=== PATIENT | female | born 1960 | race Caucasian/White ===

== ENCOUNTER → 2020-03-16 11:46 | Outpatient (CLI) | payer OTHER, SELFPAY | PROVIDERS: PCP Nurse Practitioner Family; Referring Provider Nurse Practitioner Family; Visit Provider Nurse Practitioner Family | DX: Z11.59 Encounter for screening for other viral diseases (principal); R05 Cough; R50.9 Fever, unspecified; R43.2 Parageusia; R19.7 Diarrhea, unspecified | CPT/HCPCS: 87635; 87804; 94799; G2023; U0004 ==

== ENCOUNTER 2021-07-25 03:47 | Inpatient (IN) | payer BC, SELFPAY ==
[2021-07-25] VITALS (9 sets, daily range): BP systolic 111–155; BP diastolic 60–82; PULSE 62–90; RESP 13–18; TEMP 36.6–37.2; O2SAT 98–100; BMI 25.4; BMI 25.2
--- NOTE | 2021-07-25 04:08 | EKG12_ITS ---
Test Reason : SYNCOPE Blood Pressure : / mmHG Vent. Rate : 066 BPM Atrial Rate : 066 BPM P-R Int : 148 ms QRS Dur : 088 ms QT Int : 398 ms P-R-T Axes : 066 042 035 degrees QTc Int : 417 ms Normal sinus rhythm Normal ECG Confirmed by VALENTINA GIRON, MAGNOLIA ([id number]), graphics editor ALIZE JO ([id number]) on 07/26/2021 9:16:35 AM Referred By: MR Confirmed By:MAGNOLIA MONTGOMERY MD
[2021-07-25 04:23] LABS: Absolute Lymphocyte Count 2.87 X10^3/uL (0.83-4.51); Absolute Neutrophil Count 3.4 X10^3/uL (2.0-7.7); Basophil# 0.07 X10^3/uL; Eosinophil# 0.12 X10^3/uL; Eosinophils% 1.7 % (0-5); Hematocrit 37.4 % (37-47); Hemoglobin 12.2 g/dL (12.0-15.0); Lymphocyte # 2.87 X10^3/ul (0.83-4.51); Lymphocyte % 41.1 % (19-41); Mean Corp Hgb Conc 32.6 g/dL (32-36); Mean Corpuscular Hgb 32.4 pg (27.0-32.0); Mean Corpuscular Volume 99.2 fL (81-99); Mean Platelet Vol. 9.2 fl (6.2-12.0); Monocyte% 7.2 % (0-10); NRBC Flagged by Analyzer 0 % (0-5); Neutrophil # 3.41 X10^3/uL (2.7-7.7); Neutrophil % 48.7 % (47-70); Platelet Count 318 K/mm3 (150-450); RBC Distribution Width CV 12.8 % (11.6-14.6); RBC Distribution Width SD 46.6 fl (35.1-43.9); Red Blood Count 3.77 M/mm3 (4.2-5.4)
--- NOTE | 2021-07-25 04:44 | EX.ED.DYSGE1 ---
HPI History of Present Illness Chief Complaint: Syncope Narrative Narrative: Patient presenting secondary to feelings of lightheadedness as well as complications of chronic alcoholism. Patient states that she feels that she is an alcoholic. Patient reports that she will have periods of sobriety during the week as she works 2 full-time jobs, but every night when she comes home she will have at least 4 shots and on the weekends she states that she will get significantly intoxicated. This is been ongoing for quite some time. Patient states that her last drink was about 12 hours ago, but she does feel that she would like help with her alcoholism. Patient denies being suicidal or homicidal. She is not hallucinating. Additionally the patient is presenting secondary to concerns for feeling lightheaded. She states that all weekend she has been having feelings of lightheadedness as well as feelings of nausea. Patient states that it is worse with change in position. Is not associated with any sort of chest pain or palpitations. Patient has had some minimal vomiting. She does report that she has chronic diarrhea that is basically unchanged. She has an underlying history of hypertension. Review of systems otherwise negative. [facility] Medical History Depression Hyperlipemia Hypertension Home Medications atenolol 25 mg PO BID 07/25/21 [History Last Taken Unknown] lisinopril 2.5 mg PO DAILY 07/25/21 [History Last Taken Unknown] sertraline 50 mg PO DAILY 07/25/21 [History Last Taken Unknown] Allergy/AdvReac Type Severity Reaction Status Date / Time aspirin AdvReac Other Verified 07/25/21 03:51 Dvofzll-Jjf-Zpd Reductase AdvReac Other Verified 07/25/21 03:52 Inhibitor Social History Smoking Status: Former smoker ROS ROS ED Constitutional Constitutional ED: Denies chills or fever(s) ENT ENT ED: Denies rhinorrhea Cardiovascular Cardiovascular: Reports other Details: Lightheadedness Respiratory/Chest Respiratory/Chest: Denies cough or dyspnea Gastrointestinal Gastrointestinal: Denies abdominal pain, diarrhea, nausea or vomiting Genitourinary Genitourinary ED: Denies dysuria or hematuria Musculoskeletal Musculoskeletal: Denies back pain Integumentary Denies rash Neurologic Neurologic: Denies paresthesias or weakness Psychiatric Psychiatric: Reports other Details: Alcoholism Endocrine Endocrinology: Denies fatigue Allergic/Immunologic Allergic/Immunologic ED: Denies urticaria EXAM Physical Exam Const Vital Signs: 07/25/21 03:48 07/25/21 03:53 07/25/21 05:08 Temperature 98.4 F Temperature Source Oral Pulse Rate 74 72 Respiratory Rate 13 14 Respiratory Effort Normal Respiratory Pattern Normal Blood Pressure 155/77 H 132/72 H Blood Pressure Mean 103 92 Pulse Ox 100 100 Oxygen Delivery Method Room Air Room Air Positive well nourished and well developed Constitutional Narrative: Thin female who is tearful but otherwise not in physiologic distress General Appearance ED: well developed and NAD HEENT Reports moist mucous membranes Negative for trauma or tenderness Eyes EOMs intact bilaterally Neck no lymphadenopathy, supple and no JVD Chest Wall inspection of chest normal Resp normal respiratory effort and clear to auscultation bilaterally Cardio regular rate, regular rhythm, no murmurs and peripheral pulses 2+ throughout GI normal to inspection, nondistended, normoactive bowel sounds, non-tender and no masses Palpation: soft Back/Spine normal to inspection Extremity normal to inspection General Extremety ED: Negative for tenderness Neuro oriented x3 and no sensory deficits noted Sensorium / Orientation: alert Motor Exam: strength 5/5 throughout Psych Mood & Affect: tearful Skin no rashes or lesions noted MDM MDM MDM Narrative Medical decision making narrative: Patient presented with multiple complaints including dizziness as well as chronic alcoholism requesting potential detox. EKG was obtained on the patient was found to be unremarkable. CBC found to be unremarkable. Chemistry shows no significant electrolyte derangements, normal liver panel with modestly elevated AST, normal TSH. Despite the fact that the patient states that she was 12 hours out from her last drink her alcohol was still 152. Toxicology screen was found to be negative. High-sensitivity troponin also found to be negative. From syncope or presyncope standpoint I do not believe that the patient requires admission, but she does still have alcohol in her system and I would have suspicion that the patient potentially always has alcohol in her system even though she works given the aggressiveness with which she drinks. I do believe that she would potentially benefit from going through the detox program. I will discussed this with hospitalist. Lab Data Labs: Laboratory Results - last 24 hr 07/25/21 07/25/21 07/25/21 04:17 04:17 04:17 WBC 7.0 RBC 3.77 L Hgb 12.2 Hct 37.4 MCV 99.2 H MCH 32.4 H MCHC 32.6 RDW Std Deviation 46.6 H RDW Coeff of Johnathan 12.8 Plt Count 318 MPV 9.2 Immature Gran % (Auto) 0.300 Neut % (Auto) 48.7 Lymph % (Auto) 41.1 H Fajardo % (Auto) 7.2 Eos % (Auto) 1.7 Baso % (Auto) 1.0 Absolute Neuts (auto) 3.4 Absolute Lymphs (auto) 2.87 Nucleated RBC % 0 Sodium 138 Potassium 4.2 Chloride 103 Carbon Dioxide 26.0 Anion Gap 9 BUN 27 H Creatinine 1.06 H Estim Creat Clear Calc 44.08 Est GFR (MDRD) Af Amer 68 Est GFR (MDRD) Non-Af 56 L BUN/Creatinine Ratio 25.5 H Glucose 92 Calcium 8.7 Total Bilirubin 0.40 AST 61 H ALT 48 Alkaline Phosphatase 88 Troponin I High Sens 4 Total Protein 7.1 Albumin 3.4 Globulin 3.7 Albumin/Globulin Ratio 0.9 TSH 2.40 Urine Opiates Screen Urine Methadone Screen Ur Barbiturates Screen Ur Phencyclidine Scrn Ur Amphetamines Screen U Methamphetamin-MDMA U Benzodiazepines Scrn Urine Cocaine Screen U Cannabinoids Screen Ur Drug Screen Comment Ethyl Alcohol 152.0 07/25/21 04:35 WBC RBC Hgb Hct MCV MCH MCHC RDW Std Deviation RDW Coeff of Johnathan Plt Count MPV Immature Gran % (Auto) Neut % (Auto) Lymph % (Auto) Fajardo % (Auto) Eos % (Auto) Baso % (Auto) Absolute Neuts (auto) Absolute Lymphs (auto) Nucleated RBC % Sodium Potassium Chloride Carbon Dioxide Anion Gap BUN Creatinine Estim Creat Clear Calc Est GFR (MDRD) Af Amer Est GFR (MDRD) Non-Af BUN/Creatinine Ratio Glucose Calcium Total Bilirubin AST ALT Alkaline Phosphatase Troponin I High Sens Total Protein Albumin Globulin Albumin/Globulin Ratio TSH Urine Opiates Screen NEGATIVE Urine Methadone Screen NEGATIVE Ur Barbiturates Screen NEGATIVE Ur Phencyclidine Scrn NEGATIVE Ur Amphetamines Screen NEGATIVE U Methamphetamin-MDMA NEGATIVE U Benzodiazepines Scrn NEGATIVE Urine Cocaine Screen NEGATIVE U Cannabinoids Screen NEGATIVE Ur Drug Screen Comment Ethyl Alcohol EKG Initial EKG: Attestation: I personally reviewed and interpreted this EKG as follows: (Sinus rhythm [address] segments normal T waves normal GA and QTC intervals no evidence of acute ischemia or arrhythmia) Discharge Plan Dx/Rx/DC Orders Clinical Impression: Alcoholism, Alcohol withdrawal Disposition Disposition: Acute Care Hospital [facility]
[2021-07-25 04:48] LABS: ALB/GLOB Ratio 0.9 RATIO (0.9-2.4); AST(SGOT) 61 U/L (15-37); Alanine Aminotransfer ALT/SGPT 48 U/L (13-56); Albumin, Serum 3.4 g/dL (3.2-5.0); Alkaline Phosphatase 88 U/L (45-117); Anion Gap 9 (5-15); BUN 27 mg/dL (7-18); BUN/Creat Ratio 25.5 RATIO (10-20); Calcium,Total 8.7 mg/dL (8.5-10.1); Chloride 103 mmol/L (98-107); Creatinine, Serum 1.06 mg/dL (0.55-1.02); EST Glomerular Filtration Rate 56 mL/min (>60); Est Glom Filt Rate - Afr Amer 68 mL/min (>60); Estimated Creatinine Clearance 44.08 ml/min; Globulin 3.7 g/dL (2.2-4.2); Glucose 92 mg/dL (74-106); Potassium 4.2 mmol/L (3.5-5.1); Protein, Total 7.1 g/dL (6.4-8.2); Sodium Level 138 mmol/L (136-145); Troponin-I HS 4 pg/mL (3.0-54.0)
[2021-07-25 04:56] LABS: Amphetamine Urine VISTA NEGATIVE (<1000 ng/mL); Barbiturate Urine VISTA NEGATIVE (< 200 ng/mL); Benzodiazepine Urine VISTA NEGATIVE (< 200 ng/mL); Cocaine Urine VISTA NEGATIVE (< 300 ng/mL); Ecstacy Urine VISTA NEGATIVE (< 500 ng/mL); Methadone Urine VISTA NEGATIVE (< 300 ng/mL); PCP Urine VISTA NEGATIVE (< 25 ng/mL); THC Urine VISTA NEGATIVE (< 50 ng/mL); Vista UDS pH Range 4
--- NOTE | 2021-07-25 05:23 | HP.PCM_ITS ---
HPI - General HPI Narrative TJ TOM, is a 60 F who presents to the emergency room requesting alcohol detoxification. Patient has had heavy drinking history for the past 4 years and moderate drinking prior to that. She drinks half 1/5 of whiskey every day when she comes home from work. 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 She states her drinks moderately but is able to go several days without having an alcoholic beverage. Apparently he lost his first to alcoholism. The patient presented with some lightheadedness and dizziness and soon admitted that that was secondary to her alcohol withdrawal. Patient states she has not had a drink in 12 hours however that is inconsistent with the laboratory findings of an alcohol level of 152. Patient denies any chest pain shortness of breath fevers or chills nausea vomiting or diarrhea. Patient will be admitted to the rehab program for alcohol withdrawal. [facility] Medical History Depression Hyperlipemia Hypertension Home Medications atenolol 25 mg PO BID 07/25/21 [History Last Taken Unknown] lisinopril 2.5 mg PO DAILY 07/25/21 [History Last Taken Unknown] sertraline 50 mg PO DAILY 07/25/21 [History Last Taken Unknown] Allergy/AdvReac Type Severity Reaction Status Date / Time aspirin AdvReac Other Verified 07/25/21 03:51 Gaqvjwi-Mbs-Rwg Reductase AdvReac Other Verified 07/25/21 03:52 Inhibitor Social History Smoking Status: Former smoker ROS Constitutional Constitutional: Denies chills or fever(s) Eyes Eyes: Denies blurry vision ENT HEENT: Denies abnormal hearing Cardiovascular Cardiovascular: Denies chest pain Respiratory/Chest Respiratory/Chest: Denies shortness of breath at rest Gastrointestinal Gastrointestinal: Denies abdominal pain Genitourinary Genitourinary: Denies dysuria Musculoskeletal Musculoskeletal: Denies back pain Neurologic Neurologic: Reports dizziness Psychiatric Psychiatric: Reports anxiety Vital Signs Vital Signs Vital Signs: 07/25/21 03:48 07/25/21 03:53 07/25/21 05:08 Temperature 98.4 F Temperature Source Oral Pulse Rate 74 72 Respiratory Rate 13 14 Respiratory Effort Normal Respiratory Pattern Normal Blood Pressure 155/77 H 132/72 H Blood Pressure Mean 103 92 Pulse Ox 100 100 Oxygen Delivery Method Room Air Room Air Weight Weight: 139 lb 1.787 oz Body Mass Index (BMI) 25.4 Physical Exam Const oriented x3 HEENT head/scalp atraumatic Eyes PERRL Neck supple Lymph Lymphatic: no lymphadenopathy noted Resp normal respiratory effort, normal air movement and clear to auscultation bilaterally Cardio regular rate, regular rhythm, S1 normal heart sound and S2 normal heart sound GI normal to inspection, nondistended, normoactive bowel sounds Extremity no clubbing, cyanosis or edema Skin General Skin Exam: turgor normal Neuro CN's II-XII intact bilaterally Psych affect normal Results Lab / Micro Data Result Diagrams: 07/25/21 04:17 07/25/21 04:17 Labs: Laboratory Results - last 24 hr 07/25/21 04:17: WBC 7.0, RBC 3.77 L, Hgb 12.2, Hct 37.4, MCV 99.2 H, MCH 32.4 H, MCHC 32.6, RDW Std Deviation 46.6 H, RDW Coeff of Johnathan 12.8, Plt Count 318, MPV 9.2, Immature Gran % (Auto) 0.300, Neut % (Auto) 48.7, Lymph % (Auto) 41.1 H, Bland % (Auto) 7.2, Eos % (Auto) 1.7, Baso % (Auto) 1.0, Absolute Neuts (auto) 3.4, Absolute Lymphs (auto) 2.87, Nucleated RBC % 0 07/25/21 04:17: Sodium 138, Potassium 4.2, Chloride 103, Carbon Dioxide 26.0, Anion Gap 9, BUN 27 H, Creatinine 1.06 H, Estim Creat Clear Calc 44.08, Est GFR (MDRD) Af Amer 68, Est GFR (MDRD) Non-Af 56 L, BUN/Creatinine Ratio 25.5 H, Glucose 92, Calcium 8.7, Total Bilirubin 0.40, AST 61 H, ALT 48, Alkaline Phosphatase 88, Troponin I High Sens 4, Total Protein 7.1, Albumin 3.4, Globulin 3.7, Albumin/Globulin Ratio 0.9, TSH 2.40 07/25/21 04:17: Ethyl Alcohol 152.0 07/25/21 04:35: Urine Opiates Screen NEGATIVE, Urine Methadone Screen NEGATIVE, Ur Barbiturates Screen NEGATIVE, Ur Phencyclidine Scrn NEGATIVE, Ur Amphetamines Screen NEGATIVE, U Methamphetamin-MDMA NEGATIVE, U Benzodiazepines Scrn NEGATIVE, Urine Cocaine Screen NEGATIVE, U Cannabinoids Screen NEGATIVE, Ur Drug Screen Comment Assessment & Plan Assessment/Plan (1) Alcohol withdrawal: PLAN: Plan 1. Alcohol withdrawal?admit patient to our RAMP program, start thiamine folic acid, counseling consult for outpatient follow-up care, will follow [place] protocol 2. DVT prophylaxis?patient is ambulatory from bed to bathroom at this point medications not needed Charges/Coding Visit Charges Inpatient E&M: 97906 Init Hosp L2
--- NOTE | 2021-07-25 07:08 | PCM.HOSP.N ---
Hospitalist Note The patient was admitted on the morning today. H&P reviewed. Patient is started on phenobarbital based other adjunctive medications for medical stabilization of acute alcohol withdrawal syndrome. BUN is elevated suggestive of intravascular volume contraction. On IV fluid Ringer lactate. Patient has been drinking 1/5 of whiskey every day, about 5 shots of vodka during weekdays and more on weekends Patient denies history of GI bleed including hematemesis or melena, ascites Exam mild tremors Management On phenobarbital. Ativan discontinued. Discussed with the pharmacist.
[2021-07-25] MEDS: Phenobarbital 32.4 MG Tablet 64.8 MG PO ×5 (08:32→23:31)
[2021-07-25] MEDS: Folic Acid 1 MG Tablet PO (08:33)
[2021-07-25] MEDS: Thiamine Hydrochloride 100 MG Tablet PO (08:33)
[2021-07-25] MEDS: Atenolol 25 MG Tablet PO ×2 (08:33→21:01)
[2021-07-25] MEDS: Lisinopril 2.5 MG Tablet PO (08:34)
[2021-07-25] MEDS: Enoxaparin 40 MG/0.4 ML Syringe SC (08:35)
[2021-07-25] MEDS: 0.9% Saline Lock 10 ML Syringe IV ×2 (08:50→19:00)
[2021-07-25] MEDS: Lactated Ringers 1,000 ML 125 ML IV (08:50)
[2021-07-25] MEDS: Ondansetron 8 MG Tablet PO (08:55)
--- NOTE | 2021-07-25 12:08 | ADDICTION ---
TW met with pt to complete ASAM, AUDIT,DUDIT, MSE, and plan for d/c. Pt reported high stressors at home and difficulty managing all of them. TW provided supportive counseling to manage stressors. PT reported that she has an EAP at work but her place of employment was recently bought out and now she's unsure who the covered providers are. Pt reported that she wants to seek counseling through her EAP when she is released, and she has done this multiple times in the past. TW stated she would still provide her resources in the [facility] area, as pt is located in [place]. Pt stated she does not need transportation on d/c.
[2021-07-25] MEDS: Loperamide 2 MG Capsule PO (17:06)
[2021-07-25] MEDS: Sertraline 50 MG Tablet PO (21:01)
[2021-07-25] MEDS: traZODone 100 MG Tablet PO (23:31)
--- NOTE | 2021-07-25 23:32 | PCS.PANDOC ---
PANDEMIC DOCUMENTATION INITIATED: Date: 07/03/2021 Time: 190
[2021-07-26] VITALS (8 sets, daily range): BP systolic 106–148; BP diastolic 55–76; PULSE 68–81; RESP 16–24; TEMP 36.7–36.9; O2SAT 97–98
[2021-07-26] MEDS: Phenobarbital 32.4 MG Tablet 64.8 MG PO ×6 (03:01→23:31)
[2021-07-26] MEDS: Folic Acid 1 MG Tablet PO (06:33)
[2021-07-26] MEDS: Thiamine Hydrochloride 100 MG Tablet PO (06:33)
[2021-07-26] MEDS: 0.9% Saline Lock 10 ML Syringe IV ×3 (06:33→21:56)
--- NOTE | 2021-07-26 09:36 | ADDICTION ---
TW met with PT to provide resources in [facility]. TW left paperwork on [facility], a mental health and substance use facility in [place] due to PT being from [place]. Pt stated I don't know what they gave me last night but I can't stay awake and then immediately fell back asleep. TW stated she would leave resources on the table and be back to see her the following day.
[2021-07-26] MEDS: Lisinopril 2.5 MG Tablet PO ×2 (11:27→21:49)
[2021-07-26] MEDS: Atenolol 25 MG Tablet PO ×2 (11:28→21:49)
[2021-07-26] MEDS: Enoxaparin 40 MG/0.4 ML Syringe SC (11:28)
--- NOTE | 2021-07-26 15:40 | PCM.PN.HOSP ---
Subjective Subjective Seen and examined. Patient denies any hallucination, delusion or delusion. No seizure. Objective Data Objective Data Vital Signs: Vital Signs Temp Pulse Resp BP Pulse Ox 98.3 F 75 18 148/76 H 98 07/26/21 11:32 07/26/21 11:32 07/26/21 11:32 07/26/21 11:32 07/26/21 11:32 Oxygen Delivery Method Room Air Weight: 137 lb 12.623 oz Body Mass Index (BMI) 25.2 Intake & Output: Intake and Output for Last 24 Hours 07/24/21 07/25/21 07/26/21 23:59 23:59 23:59 Intake Total 1650 / 1650 490 / 490 Balance 1650 / 1650 490 / 490 Lab / Micro Data Result Diagrams: 07/25/21 04:17 07/25/21 04:17 Micro: Microbiology 07/25/21 05:25 Nasal Secretion SARS-CoV-2 Antigen (Rapid) - Final Physical Exam Narrative General: Mild drowsy, oriented x3, Cooperative HEENT: Atraumatic, PERRLA, EOMI, Normocephalic Oral: No Gingival or Mucosal Lesions/ Ulcerations Neck: Supple, No JVD, Negative Carotid Bruits Lungs: Air entry diminished in bilateral lung bases. No crepitation/rhonchi Cardiovascular: Regular rate, Regular Rhythm, Normal S1, Normal S2, No murmurs Abdomen: Bowel Sounds Present, Soft, Non Tender, Non-Distended : No renal angle tenderness. No suprapubic tenderness. Extremities: No edema, Capillary Refill Less than 3 Seconds Skin: No rashes, No breakdown Musculoskeletal: Mild tremors of both hands. No Tenderness to Palpation of Joints or Extremities Neurological: Cranial nerves II-XII grossly intact, DTR 2+/4 and Symmetrical, Neuro grossly intact Psych/Mental Status: Flat affect. Assessment & Plan Assessment/Plan (1) Alcohol withdrawal: PLAN: 1. Acute alcohol withdrawal syndrome with chronic alcohol use with mild chronic alcoholic hepatitis: Patient is on phenobarbital along with other adjunctive medications to control withdrawal symptoms. Patient also on sertraline. Symptoms are well controlled. Seen by 180 and plan for outpatient rehab. Supplement thiamine and folic acid. AST 61. Total bilirubin normal. 2. Cigarette smoking: On nicotine patch. VTE prophylaxis: Enoxaparin 40 mg daily. Discontinue if platelet count drops less than 50,000 or hemoglobin less than 8 g% Charges/Coding Visit Charges Inpatient E&M: 93827 Subs Hosp L2
[2021-07-26] MEDS: hydrOXYzine PAM 25 MG Capsule 50 MG PO (16:55)
[2021-07-26] MEDS: Sertraline 50 MG Tablet PO (21:49)
[2021-07-27 02:46] VITALS: BP 110/71; PULSE 76; RESP 16; TEMP 36.5; O2SAT 95
[2021-07-27 02:50] VITALS: BP 110/71; PULSE 76; RESP 16; TEMP 36.5; O2SAT 95
[2021-07-27] MEDS: Phenobarbital 32.4 MG Tablet 64.8 MG PO ×2 (02:54→07:17)
--- NOTE | 2021-07-27 09:49 | PCM.DC ---
Discharge Instructions Diet Discharge Diet: No restrictions Activity Discharge Activity: Return to Normal Activity and May Not Drive Weight Bearing Status: Weight bearing as tolerated Dressing / Incision Call your doctor if you observe: Fever of 101 or Higher, Coldness, Increased Pain, Numbness or Tingling, Change in Color, Inability to urinate, Inability to have a bowel movement, Using more than 1 pad per hour, Shortness of breath, Dizziness, Swelling in the ankles, Chest pain, Prolonged hiccupping, Increased palpitations (irregular heartbeat), Calf discomfort and Uncontrolled pain Follow Up Care Test Results: Test results from this visit will be discussed in further detail at your follow-up appointment, if applicable. Discharge Plan Admission Admit Date/Time: 07/25/21 05:33 Primary Reason for Your Visit: Acute alcohol withdrawal syndrome Attending Provider: Rito Camacho Instructions Patient Instructions: Alcohol Withdrawal: What to Expect Additional Instructions / Restrictions: Follow-up outpatient alcohol rehab program as set up by [facility]. Discharge Orders/Prescriptions Prescriptions: New thiamine HCl (vitamin B1) [Vitamin B-1] 100 mg Tablet 100 mg PO DAILYCM Qty: 30 RF: 0 folic acid 1 mg Tablet 1 mg PO DAILY@0800 Qty: 30 RF: 0 Continued atenolol 25 mg tablet 25 mg PO BID RF: 0 sertraline 50 mg tablet 50 mg PO QHS RF: 0 lisinopril 2.5 mg tablet 2.5 mg PO BID RF: 0 Referrals / Follow Up: TJ BRONSON [Other] TJ BRONSON [Other] Emmanuel Jiménez MD [STAFF PHYSICIAN] - Within 2 Weeks Disposition Disposition (needs filled in before D/C Order can be placed): Home, Self Care
--- NOTE | 2021-07-27 09:53 | PCM.DC.SUM ---
Providers Date of Admission: 07/25/21 Primary Care Physician: TJ BRONSON Reason For Visit: ALCOHOL WITHDRAWL Diagnosis Discharge Diagnosis (1) Alcohol withdrawal: Status: Acute Code(s): F10.239 - Alcohol dependence with withdrawal, unspecified Medications at Discharge Home Medications atenolol 25 mg PO BID 07/25/21 lisinopril 2.5 mg PO BID 07/25/21 sertraline 50 mg PO QHS 07/25/21 folic acid 1 mg PO DAILY@0800 #30 tab 07/27/21 thiamine HCl (vitamin B1) [Vitamin B-1] 100 mg PO DAILYCM #30 tab 07/27/21 Hospital Course Summary of Care Provided Hospital Course: This is a patient which is admitted for acute alcohol withdrawal syndrome. Patient drinks 1/5 of whiskey on weekdays and more on weekends. She was admitted with tremors, lightheadedness and dizziness. 1. Acute alcohol withdrawal syndrome with chronic alcohol use with mild chronic alcoholic hepatitis: Patient was on phenobarbital along with other adjunctive medications to control withdrawal symptoms. Patient also on sertraline. Symptoms are well controlled. Seen by 180 and plan for outpatient rehab. Supplement thiamine and folic acid. AST 61. Total bilirubin normal. 2. Cigarette smoking: On nicotine patch. VTE prophylaxis: Enoxaparin 40 mg daily. Discontinue if platelet count drops less than 50,000 or hemoglobin less than 8 g% Discharge medication reconciliation done. Discharge follow-up instructions completed. Discharge process discussed with the patient and all questions were answered to patient's satisfaction. Total time spent, exact 35 minutes on discharge meds reconciliation, examination, coordination of care with nurses and ancillary staff, review of imaging and blood test and discussion with the patient on follow-up instructions Physical Exam Narrative General: Awake, oriented x3, Cooperative HEENT: Atraumatic, PERRLA, EOMI, Normocephalic Oral: No Gingival or Mucosal Lesions/ Ulcerations Neck: Supple, No JVD, Negative Carotid Bruits Lungs: Air entry diminished in bilateral lung bases. No crepitation/rhonchi Cardiovascular: Regular rate, Regular Rhythm, Normal S1, Normal S2, No murmurs Abdomen: Bowel Sounds Present, Soft, Non Tender, Non-Distended : No renal angle tenderness. No suprapubic tenderness. Extremities: No edema, Capillary Refill Less than 3 Seconds Skin: No rashes, No breakdown Musculoskeletal: Mild tremors of both hands. No Tenderness to Palpation of Joints or Extremities Neurological: Cranial nerves II-XII grossly intact, DTR 2+/4 and Symmetrical, Neuro grossly intact Psych/Mental Status: Flat affect. Weight / BMI Weight Weight: 137 lb 12.623 oz Body Mass Index (BMI) 25.2 ABG / Lab / Microbiology Data Result Diagrams: 07/25/21 04:17 07/25/21 04:17 Microbiology: Microbiology 07/25/21 05:25 Nasal Secretion SARS-CoV-2 Antigen (Rapid) - Final D/C Instructions Discharge Diet: No restrictions Weight Bearing Status: Weight bearing as tolerated Call your doctor if you observe: Fever of 101 or Higher, Coldness, Increased Pain, Numbness or Tingling, Change in Color, Inability to urinate, Inability to have a bowel movement, Using more than 1 pad per hour, Shortness of breath, Dizziness, Swelling in the ankles, Chest pain, Prolonged hiccupping, Increased palpitations (irregular heartbeat), Calf discomfort and Uncontrolled pain Meaningful Use Info Meaningful Use Diagnoses (Choose all that apply): None applicable Discharge Plan Admission Admit Date/Time: 07/25/21 05:33 Primary Reason for Your Visit: Acute alcohol withdrawal syndrome Attending Provider: Rito Camacho Instructions Forms: Work / School Excuse Patient Instructions: Alcohol Withdrawal: What to Expect Additional Instructions / Restrictions: Follow-up outpatient alcohol rehab program as set up by 180. Discharge Orders/Prescriptions Prescriptions: New thiamine HCl (vitamin B1) [Vitamin B-1] 100 mg Tablet 100 mg PO DAILYCM Qty: 30 RF: 0 folic acid 1 mg Tablet 1 mg PO DAILY@0800 Qty: 30 RF: 0 Continued atenolol 25 mg tablet 25 mg PO BID RF: 0 sertraline 50 mg tablet 50 mg PO QHS RF: 0 lisinopril 2.5 mg tablet 2.5 mg PO BID RF: 0 Referrals / Follow Up: TJ BRONSON [Other] TJ BRONSON [Other] Emmanuel Jiménez MD [STAFF PHYSICIAN] - Within 2 Weeks Disposition Disposition (needs filled in before D/C Order can be placed): Home, Self Care Charges/Coding Visit Charges Inpatient E&M: 58127 Disch Hosp
--- NOTE | 2021-07-27 10:12 | ADDICTION ---
TW went to see PT to discuss discharge and see if there was anything further PT needed. TW offered supportive counseling and encouragement. PT stated she would f/u with her work EAP and make an appointment by tomorrow 07/27/21.
[2021-07-27] MEDS: Lisinopril 2.5 MG Tablet PO (11:11)
[2021-07-27] MEDS: Atenolol 25 MG Tablet PO (11:12)
[2021-07-27] MEDS: Folic Acid 1 MG Tablet PO (11:12)
[2021-07-27] MEDS: Thiamine Hydrochloride 100 MG Tablet PO (11:12)
[2021-07-27 11:15] VITALS: BP 116/61; PULSE 75; RESP 16; TEMP 36.4; O2SAT 98
== END 2021-07-27 12:44 | disposition home or self-care (01) | DRG 897 ==
LOC: ED 05:10 → MS3 05:34
PROVIDERS: Admitting Provider Family Medicine; Emergency Provider Emergency Medicine; Visit Provider Internal Medicine
DX: F10.239 Alcohol dependence with withdrawal, unspecified (principal); Y90.6 Blood alcohol level of 120-199 mg/100 ml; K70.10 Alcoholic hepatitis without ascites; Z20.822 Contact with and (suspected) exposure to COVID-19; R55 Syncope and collapse; I10 Essential (primary) hypertension; E78.5 Hyperlipidemia, unspecified; F32.9 Major depressive disorder, single episode, unspecified; F17.210 Nicotine dependence, cigarettes, uncomplicated; Z79.899 Other long term (current) drug therapy
CPT/HCPCS: 80053; 80307; 82077; 84443; 84484; 85025; 87426; 93005; 97802; 99284; J7120; A4216

== ENCOUNTER 2022-02-20 13:36 | Inpatient (IN) | payer BC, SELFPAY ==
[2022-02-20 13:38] VITALS: BP 154/87; PULSE 73; RESP 14; TEMP 36.2; O2SAT 98; BMI 27.1
--- NOTE | 2022-02-20 14:28 | EKG12_ITS ---
Test Reason : ALCOHOL DETOX Blood Pressure : / mmHG Vent. Rate : 066 BPM Atrial Rate : 066 BPM P-R Int : 142 ms QRS Dur : 084 ms QT Int : 404 ms P-R-T Axes : 037 038 025 degrees QTc Int : 423 ms Normal sinus rhythm Normal ECG Confirmed by NEGRITO PIERCE MD ([id number]), editor farm journal WERNER VENEGAS ([id number]) on 02/21/2022 2:09:37 PM Referred By: RUBEN Confirmed By:NEGRITO PIERCE MD
[2022-02-20 14:33] LABS: Absolute Neutrophil Count 2.9 X10^3/uL (2.0-7.7); Basophil# 0.03 X10^3/uL; Basophil% 0.6 % (0-1); Eosinophil# 0.08 X10^3/uL; Eosinophils% 1.6 % (0-5); Hematocrit 34.2 % (37-47); Hemoglobin 11.5 g/dL (12.0-15.0); Lymphocyte % 28.9 % (19-41); Mean Corp Hgb Conc 33.6 g/dL (32-36); Mean Corpuscular Hgb 33.2 pg (27.0-32.0); Mean Corpuscular Volume 98.8 fL (81-99); Mean Platelet Vol. 9.4 fl (6.2-12.0); Monocyte# 0.43 X10^3/uL; Monocyte% 8.9 % (0-10); NRBC Flagged by Analyzer 0 % (0-5); Neutrophil % 59.8 % (47-70); Platelet Count 251 K/mm3 (150-450); RBC Distribution Width CV 12.4 % (11.6-14.6); RBC Distribution Width SD 44.7 fl (35.1-43.9); Red Blood Count 3.46 M/mm3 (4.2-5.4); White Blood Count 4.9 K/mm3 (4.4-11.0)
--- NOTE | 2022-02-20 14:35 | EDS_ITS ---
HPI History of Present Illness Chief Complaint: Substance Abuse Informant: patient Narrative Narrative: Patient is a 61-year-old female history of hypertension, depression hyperlipidemia as well as family history of coronary artery disease presenting with request for alcohol detox. Patient states she drinks half pint of whiskey a day and more on the weekends. She was an inpatient detox here in 07/2022 but states that after couple when she started drinking again. She contributes this to not setting up outpatient counseling or going to . Her last drink was at noon today. She has a history of tobacco use but quit 2 to 3 years ago. Denies any drug use. Notes that she is been more fatigued lately and has had night sweats for the past 6 months to a year. Has had some mild weight gain. Denies any swelling of her legs. States she does work 2 jobs and then takes care of her grandchildren so she does have a high level of stress. She notes that about 4 days ago she had episode of chest discomfort and tightness radiating down to her left arm and into her neck. She never had that before. It lasted for couple hours and self resolved. She denies any orthopnea or dyspnea on exertion. No other complaints at this time. [facility] Medical History (Updated 02/20/22 @ 15:[address] Keena Hills, DO) Alcoholism Cholecystectomy planned Colitis Depression Hyperlipemia Hypertension Home Medications atenolol 25 mg PO BID 07/25/21 [History Last Taken Unknown] lisinopril 2.5 mg PO BID 07/25/21 [History Last Taken Unknown] sertraline 50 mg PO QHS 07/25/21 [History Last Taken Unknown] folic acid 1 mg PO DAILY@0800 #30 tab 07/27/21 [Rx Last Taken Unknown] cetirizine 10 mg PO DAILY 02/20/22 [History Last Taken Unknown] cimetidine 200 mg PO DAILY 02/20/22 [History Last Taken Unknown] vitamin B complex [Vitamins B Complex] 1 tab PO DAILY 02/20/22 [History Last Taken Unknown] Allergy/AdvReac Type Severity Reaction Status Date / Time aspirin AdvReac JITTERY Verified 02/20/22 15:35 Rgvfvjk-AHK-ZsD Reductase AdvReac FEELS LIKE Verified 02/20/22 15:35 Inhibitor LIPS ARE [Eqweafp-Exn-Kfr Reductase ON FIRE Inhibitor] Social History Smoking Status: Former smoker ROS ROS ED Constitutional Constitutional ED: Denies chills, fever(s) or weight loss Eyes Eyes: Denies change in vision ENT ENT ED: Denies ear pain Cardiovascular Cardiovascular: Reports chest pain Respiratory/Chest Respiratory/Chest: Denies cough or dyspnea Gastrointestinal Gastrointestinal: Denies abdominal pain, diarrhea, melena or vomiting Musculoskeletal Musculoskeletal: Denies arthralgias or myalgias Integumentary Denies rash Neurologic Neurologic: Denies headache(s) or weakness Psychiatric Psychiatric: Denies anxiety, depression or suicidal thoughts Hematologic/Lymphatic Hematologic/Lymphatic: Denies easy bleeding or easy bruising EXAM Physical Exam Const Vital Signs: 02/20/22 13:38 02/20/22 15:26 Temperature 97.2 F L Temperature Source Temporal Pulse Rate 73 65 Respiratory Rate 14 16 Blood Pressure 154/87 H 150/77 H Blood Pressure Mean 109 101 Pulse Ox 98 99 Oxygen Delivery Method Room Air Room Air Positive well nourished and well developed General Appearance ED: well developed HEENT Reports moist mucous membranes atraumatic Eyes PERRL and EOMs intact bilaterally Neck supple and no JVD Chest Wall inspection of chest normal Resp normal respiratory effort and clear to auscultation bilaterally Cardio regular rate, regular rhythm and no murmurs GI soft to palpation, non-tender, non-distended and no masses Back/Spine no CVA tenderness Extremity Extremity Narrative: 2+ DP pulses General Extremety ED: Negative for edema or tenderness General Extremity: Negative for edema Neuro oriented x3 and CN's II-XII intact bilaterally Neuro Narrative: no tremor Sensorium / Orientation: alert Motor Exam: Negative for general weakness Psych mental status grossly normal and thought process normal Skin General Skin Exam: Negative for jaundice Lesions: no lesions Rashes: no rashes MDM MDM MDM Narrative Medical decision making narrative: Patient evaluated for alcohol detox. Patient does not currently appear to be withdrawing. She is medically evaluated. Cardiac work-up is also obtained as patient had an episode of chest pain over the weekend. Her EKG is normal and her troponin is now normal. She does have a mildly elevated BNP which is indeterminate. Chest x-ray does not appear consistent with fluid overload. Chest x-ray interpreted by myself as well as radiology. Patient is admitted to hospital service. Lab Data Attestation: I reviewed the patient's lab results. Labs: Laboratory Results - last 24 hr 02/20/22 02/20/22 02/20/22 14:24 14:24 14:24 WBC 4.9 RBC 3.46 L Hgb 11.5 L Hct 34.2 L MCV 98.8 MCH 33.2 H MCHC 33.6 RDW Std Deviation 44.7 H RDW Coeff of Johnathan 12.4 Plt Count 251 MPV 9.4 Immature Gran % (Auto) 0.200 Neut % (Auto) 59.8 Lymph % (Auto) 28.9 Esmeralda % (Auto) 8.9 Eos % (Auto) 1.6 Baso % (Auto) 0.6 Absolute Neuts (auto) 2.9 Absolute Lymphs (auto) 1.40 Nucleated RBC % 0 PT 12.7 INR 1.0 Sodium 139 Potassium 4.0 Chloride 108 H Carbon Dioxide 23.0 Anion Gap 8 BUN 21 H Creatinine 1.34 H Estim Creat Clear Calc 34.43 Est GFR (MDRD) Af Amer 52 L Est GFR (MDRD) Non-Af 43 L BUN/Creatinine Ratio 15.7 Glucose 122 H Calcium 9.0 Total Bilirubin 0.30 AST 22 ALT 24 Alkaline Phosphatase 91 Troponin I High Sens B-Natriuretic Peptide Total Protein 6.7 Albumin 3.5 Globulin 3.2 Albumin/Globulin Ratio 1.1 Urine Color Urine Clarity Urine pH Ur Specific [place] Urine Protein Urine Glucose (UA) Urine Ketones Urine Occult Blood Urine Nitrite Urine Bilirubin Urine Urobilinogen Ur Leukocyte Esterase Urine RBC Urine WBC Ur Squamous Epith Cells Urine Bacteria Urine Mucus Urine Opiates Screen Urine Methadone Screen Ur Barbiturates Screen Ur Phencyclidine Scrn Ur Amphetamines Screen MDMA (Ecstasy) Screen U Benzodiazepines Scrn Urine Cocaine Screen U Cannabinoids Screen Ur Drug Screen Comment Ethyl Alcohol 02/20/22 02/20/22 02/20/22 14:24 14:24 14:24 WBC RBC Hgb Hct MCV MCH MCHC RDW Std Deviation RDW Coeff of Johnathan Plt Count MPV Immature Gran % (Auto) Neut % (Auto) Lymph % (Auto) Esmeralda % (Auto) Eos % (Auto) Baso % (Auto) Absolute Neuts (auto) Absolute Lymphs (auto) Nucleated RBC % PT INR Sodium Potassium Chloride Carbon Dioxide Anion Gap BUN Creatinine Estim Creat Clear Calc Est GFR (MDRD) Af Amer Est GFR (MDRD) Non-Af BUN/Creatinine Ratio Glucose Calcium Total Bilirubin AST ALT Alkaline Phosphatase Troponin I High Sens < 3 L B-Natriuretic Peptide 110.7 H Total Protein Albumin Globulin Albumin/Globulin Ratio Urine Color Urine Clarity Urine pH Ur Specific [place] Urine Protein Urine Glucose (UA) Urine Ketones Urine Occult Blood Urine Nitrite Urine Bilirubin Urine Urobilinogen Ur Leukocyte Esterase Urine RBC Urine WBC Ur Squamous Epith Cells Urine Bacteria Urine Mucus Urine Opiates Screen Urine Methadone Screen Ur Barbiturates Screen Ur Phencyclidine Scrn Ur Amphetamines Screen MDMA (Ecstasy) Screen U Benzodiazepines Scrn Urine Cocaine Screen U Cannabinoids Screen Ur Drug Screen Comment Ethyl Alcohol 20.0 02/20/22 02/20/22 14:45 14:45 WBC RBC Hgb Hct MCV MCH MCHC RDW Std Deviation RDW Coeff of Johnathan Plt Count MPV Immature Gran % (Auto) Neut % (Auto) Lymph % (Auto) Esmeralda % (Auto) Eos % (Auto) Baso % (Auto) Absolute Neuts (auto) Absolute Lymphs (auto) Nucleated RBC % PT INR Sodium Potassium Chloride Carbon Dioxide Anion Gap BUN Creatinine Estim Creat Clear Calc Est GFR (MDRD) Af Amer Est GFR (MDRD) Non-Af BUN/Creatinine Ratio Glucose Calcium Total Bilirubin AST ALT Alkaline Phosphatase Troponin I High Sens B-Natriuretic Peptide Total Protein Albumin Globulin Albumin/Globulin Ratio Urine Color Yellow Urine Clarity Clear Urine pH 5.0 Ur Specific [place] 1.020 Urine Protein Negative Urine Glucose (UA) Normal Urine Ketones Negative Urine Occult Blood Negative Urine Nitrite Negative Urine Bilirubin Negative Urine Urobilinogen Normal Ur Leukocyte Esterase Negative Urine RBC 0 SEEN Urine WBC 0 SEEN Ur Squamous Epith Cells 0 SEEN Urine Bacteria 0 SEEN Urine Mucus 0 SEEN Urine Opiates Screen NEGATIVE Urine Methadone Screen NEGATIVE Ur Barbiturates Screen NEGATIVE Ur Phencyclidine Scrn NEGATIVE Ur Amphetamines Screen NEGATIVE MDMA (Ecstasy) Screen NEGATIVE U Benzodiazepines Scrn NEGATIVE Urine Cocaine Screen NEGATIVE U Cannabinoids Screen NEGATIVE Ur Drug Screen Comment Ethyl Alcohol Radiography Chest X-Ray - ED: 1 View, Read by ED Physician, Read by Radiologist and No Acute Disease Rhythm Strip Rhythm Strip: Sinus Rhythm Rate: 66 Ectopy: None EKG Initial EKG: Attestation: I personally reviewed and interpreted this EKG as follows: Interpretation: Sinus Rhythm Comments: Normal sinus rhythm rate of 66 Normal axis Normal intervals Normal ST segments Discharge Plan Triage Chief Complaint: Substance Abuse ED Provider: Keena Hills Dx/Rx/DC Orders Clinical Impression: Alcohol dependence, Creatinine elevation Disposition Disposition: Acute Care Hospital [facility]
[2022-02-20 14:39] LABS: Prothrombin Time (Protime)PT. 12.7 SECONDS (11.7-14.9)
[2022-02-20 14:48] LABS: ALB/GLOB Ratio 1.1 RATIO (0.9-2.4); AST(SGOT) 22 U/L (15-37); Alanine Aminotransfer ALT/SGPT 24 U/L (13-56); Albumin, Serum 3.5 g/dL (3.2-5.0); Alkaline Phosphatase 91 U/L (45-117); Anion Gap 8 (5-15); BUN 21 mg/dL (7-18); BUN/Creat Ratio 15.7 RATIO (10-20); Chloride 108 mmol/L (98-107); Creatinine, Serum 1.34 mg/dL (0.55-1.02); EST Glomerular Filtration Rate 43 mL/min (>60); Est Glom Filt Rate - Afr Amer 52 mL/min (>60); Estimated Creatinine Clearance 34.43 ml/min; Globulin 3.2 g/dL (2.2-4.2); Glucose 122 mg/dL (74-106); Protein, Total 6.7 g/dL (6.4-8.2); Sodium Level 139 mmol/L (136-145)
[2022-02-20 14:53] LABS: Bacteria 0 SEEN /hpf (None Seen); Mucous, Urine 0 SEEN /hpf (<or=2+); Red Blood Cells-Urine 0 SEEN /hpf (0-5); Squamous Epithelial Cells - UA 0 SEEN /hpf (5-10); White Blood Cells 0 SEEN /hpf (0-5)
[2022-02-20 14:57] LABS: Color, Urine Yellow (Yellow); Glucose, Dipstick Normal (Normal); Ketone-Dipstick Negative (Negative); Leukocyte Esterase-Dipstick Negative /ul (Negative); Nitrite-Dipstick Negative (Negative); Occult Blood-Urine Negative /ul (Negative); Protein-Dipstick Negative (Negative); Urine Bilirubin Dipstick Negative (Negative); Urine Clarity Clear (Clear); Urine Urobilinogen Normal (Normal)
[2022-02-20 15:08] LABS: Troponin-I HS < 3 pg/mL (3.0-54.0)
[2022-02-20 15:08] LABS: Amphetamine Urine VISTA NEGATIVE (<1000 ng/mL); Barbiturate Urine VISTA NEGATIVE (< 200 ng/mL); Benzodiazepine Urine VISTA NEGATIVE (< 200 ng/mL); Cocaine Urine VISTA NEGATIVE (< 300 ng/mL); Ecstacy Urine VISTA NEGATIVE (< 500 ng/mL); Methadone Urine VISTA NEGATIVE (< 300 ng/mL); PCP Urine VISTA NEGATIVE (< 25 ng/mL); THC Urine VISTA NEGATIVE (< 50 ng/mL); Vista UDS pH Range 5
[2022-02-20 15:17] LABS: BNP,B-Type NATRIURETIC PEPTIDE 110.7 pg/mL (0-100)
[2022-02-20 15:26] VITALS: BP 150/77; PULSE 65; RESP 16; O2SAT 99
--- NOTE | 2022-02-20 15:34 | RAD_ITS ---
STUDY: X-RAY CHEST REASON FOR EXAM: Female, 61 years old. Chest pain TECHNIQUE: Single AP portable view of the chest. COMPARISON: None. FINDINGS: The lungs are clear and expanded. There is no demonstrated pleural abnormality. Normal size heart. Normal mediastinum and samuel. Normal visualized pulmonary arteries. There is atherosclerotic tortuosity of the aortic arch and descending thoracic aorta. There are diffuse degenerative changes of the visualized thoracic spine. Normal visualized ribs, clavicles, and shoulders. There is no demonstrated abnormality of the visualized soft tissue structures of the upper abdomen. RAD/Chest 1 View (Portable) IMPRESSION: No acute abnormality is seen. Electronically Signed: Duke Morales MD at 15:50 EDT ,
--- NOTE | 2022-02-20 15:36 | NURSING ---
MED SURG ANYA ALCOHOL DETOX
[2022-02-20 16:02] VITALS: BP 150/77; PULSE 65; RESP 16; TEMP 36.2; O2SAT 99
--- NOTE | 2022-02-20 16:15 | PCM.HP.STD ---
HPI - General General Date of Admission: 02/20/22 HPI Narrative TJ TOM, is a 61 F who presented to the emergency department at [facility] on 02/20/2022 requesting alcohol detox. The patient indicated she drinks approximately 1/2 pint of whiskey a day and more on the weekends. She was admitted here in July 2021 but stated that after approximately 2 weeks she started drinking again. She contributes this to not having outpatient follow-up or going to . She states that she was talked out of pursuing these after discharge. Her last drink was today at noon and my evaluation was at 2 PM. She is currently having no active symptoms of withdrawal. She has a remote history of tobacco abuse but denies any other illicit drug use. On review of systems she states that she has been fatigued more lately and having significant anxiety. She states she works 2 to jobs and helps take care of her grandchildren which all cause high-level stress and this increases her risk of drinking. She states that on Saturday she had an episode of chest pain that radiated to her right jaw but was not associated with any shortness of breath, nausea, diaphoresis and resolved after about an hour or so. She states she has a fairly active job and has had no symptoms at work. She does have a family history of coronary disease. In the emergency department her vital signs were unremarkable other than some mildly elevated blood pressure. Her CBC shows a mild anemia with a hemoglobin of 11.5 slightly lower than her baseline. This is normocytic. Her platelets are normal. Her coagulation studies were normal. Her chemistry profile shows mild dehydration with an elevated BUN at 21 and a serum creatinine of 1.34. Her previous lab from July 2021 showed a serum creatinine of 1.06 at that time however her overall baseline is unknown. Given her chest pain troponin was done and found to be less than 3. Her EKG was unremarkable with normal sinus rhythm and no ST-T wave changes consistent with ischemia. Her chest x-ray was unremarkable. [facility] Medical History Alcoholism Cholecystectomy planned Colitis Depression Hyperlipemia Hypertension Home Medications atenolol 25 mg PO BID 07/25/21 [History Last Taken Unknown] lisinopril 2.5 mg PO BID 07/25/21 [History Last Taken Unknown] sertraline 50 mg PO QHS 07/25/21 [History Last Taken Unknown] folic acid 1 mg PO DAILY@0800 #30 tab 07/27/21 [Rx Last Taken Unknown] cetirizine 10 mg PO DAILY 02/20/22 [History Last Taken Unknown] cimetidine 200 mg PO DAILY 02/20/22 [History Last Taken Unknown] vitamin B complex [Vitamins B Complex] 1 tab PO DAILY 02/20/22 [History Last Taken Unknown] Allergy/AdvReac Type Severity Reaction Status Date / Time aspirin AdvReac JITTERY Verified 02/20/22 15:35 Ugkukrw-TGM-SpW Reductase AdvReac FEELS LIKE Verified 02/20/22 15:35 Inhibitor LIPS ARE [Htxcggg-Rrb-Oom Reductase ON FIRE Inhibitor] Family History (Updated 02/20/22 @ 16:[address] Luz Elena Khalil DO) Other COPD (chronic obstructive pulmonary disease) Heart disease Hypertension Surgical History no surgical history no surgical history Social History (Updated 02/20/22 @ 16:[address] Luz Elena Khalil DO) household members: spouse Smoking Status: Former smoker alcohol intake: current alcohol intake frequency: 3 or more drinks per day Alcohol type: hard liquor Previous attempts at quittin details: Was admitted July 2021 with no follow-up pursued and was sober for 2wk substance use type: does not use what type of physical activity do you participate in: none do you feel safe at home: Yes ROS Constitutional Constitutional: Denies anorexia, change in weight, chills, fatigue, fever(s), malaise, night sweats, weakness or other Eyes Eyes: Denies blurry vision, change in eye color, change in vision, discharge from eye(s), double vision, erythema, eye pain, loss of vision or other ENT HEENT: Denies abnormal hearing, dysphagia, ear pain, epistaxis, headache(s), hearing loss, nasal congestion, nasal discharge, post nasal drip, sinus pressure, sore throat or other Cardiovascular Cardiovascular: Reports chest pain; Denies claudication, dyspnea on exertion, edema, lightheadedness, orthopnea, palpitations, paroxysmal nocturnal dyspnea, rapid heart rate, syncope or other Respiratory/Chest Respiratory/Chest: Denies cough, dyspnea, excessive phlegm production, hemoptysis, productive cough, shortness of breath at rest, shortness of breath with exertion, wheezing or other Gastrointestinal Gastrointestinal: Denies abdominal pain, coffee ground emesis, constipation, diarrhea, dyspepsia, hematemesis, hematochezia, loose stools, melena, nausea, vomiting or other Genitourinary Genitourinary: Denies burning urination, difficulty urinating, dysuria, hematuria, nocturia, urinary frequency, urinary hesitancy, urinary incontinence, urinary urgency or other Musculoskeletal Musculoskeletal: Denies arthralgias, back pain, joint pain, joint stiffness, joint swelling, myalgias, neck pain or other Neurologic Neurologic: Denies abnormal gait, abnormal speech, confusion, disequilibrium, dizziness, focal weakness, headache(s), numbness, paresthesias, seizure-like activity, seizures, syncope, tingling, tremor(s) or other Psychiatric Psychiatric: Reports anxiety and depression; Denies homicidal ideation, suicidal ideation or other Endocrine Endocrinology: Denies change in body appearance, cold intolerance, excessive sweating, heat intolerance, polydipsia, polyuria or other Hematologic/Lymphatic Hematologic/Lymphatic: Denies anemia, easy bleeding, easy bruising, lymphadenopathy or other Allergic/Immunologic Allergic/Immunologic: Denies rhinitis, hives, eczemia, asthma or other Vital Signs Vital Signs Vital Signs: 02/20/22 13:38 02/20/22 15:26 02/20/22 16:02 Temperature 97.2 F L 97.2 F L Temperature Source Temporal Temporal Pulse Rate 73 65 65 Respiratory Rate 14 16 16 Blood Pressure 154/87 H 150/77 H 150/77 H Blood Pressure Mean 109 101 101 Pulse Ox 98 99 99 Oxygen Delivery Method Room Air Room Air Room Air Weight Weight: 67.132 kg Body Mass Index (BMI) 27.1 Physical Exam Const alert, oriented x3, no apparent distress, average body habitus, healthy appearing and well nourished Constitutional Narrative: Upper middle-aged white female who appears older than stated age, sitting up in bed, appears nontoxic and comfortable, very pleasant General Appearance: cooperative HEENT normocephalic, head/scalp atraumatic, hearing grossly normal bilaterally and moist oral mucous membranes HEENT Narrative: Mallampati is 2, no thrush Eyes PERRL, EOMs intact bilaterally and conjunctivae normal Eyes Narrative: No scleral icterus Neck no lymphadenopathy, supple, no JVD and no carotid bruits Neck Narrative: Trachea midline, no thyroid enlargement Resp normal respiratory effort, no retractions, no use of accessory muscles and clear to auscultation bilaterally Auscultation: Negative for crackles, rales, rhonchi or wheezes Cardio regular rate, regular rhythm, S1 normal heart sound, S2 normal heart sound, no murmurs, no rub, no gallops, no clicks and no JVD GI normal to inspection, nondistended, normoactive bowel sounds, soft to palpation, non-tender and non-distended; Negative for hepatosplenomegaly Extremity no clubbing, cyanosis or edema Peripheral Pulses: Yes pulses 2+ throughout Skin no rashes or lesions noted, no wounds, skin turgor normal, no jaundice, no petechiae and no mottling Neuro oriented x3, CN's II-XII intact bilaterally, moves all extremities and no focal motor deficits Sensorium / Orientation: awake and alert Speech: speech normal Motor Exam: strength 5/5 throughout Psych Mood & Affect: anxious Results Lab / Micro Data Attestation: I reviewed the patient's lab results. Result Diagrams: 02/20/22 14:24 02/20/22 14:24 Labs: Laboratory Results - last 24 hr 02/20/22 14:24: WBC 4.9, RBC 3.46 L, Hgb 11.5 L, Hct 34.2 L, MCV 98.8, MCH 33.2 H, MCHC 33.6, RDW Std Deviation 44.7 H, RDW Coeff of Johnathan 12.4, Plt Count 251, MPV 9.4, Immature Gran % (Auto) 0.200, Neut % (Auto) 59.8, Lymph % (Auto) 28.9, [place] % (Auto) 8.9, Eos % (Auto) 1.6, Baso % (Auto) 0.6, Absolute Neuts (auto) 2.9, Absolute Lymphs (auto) 1.40, Nucleated RBC % 0 02/20/22 14:24: PT 12.7, INR 1.0 02/20/22 14:24: Sodium 139, Potassium 4.0, Chloride 108 H, Carbon Dioxide 23.0, Anion Gap 8, BUN 21 H, Creatinine 1.34 H, Estim Creat Clear Calc 34.43, Est GFR (MDRD) Af Amer 52 L, Est GFR (MDRD) Non-Af 43 L, BUN/Creatinine Ratio 15.7, Glucose 122 H, Calcium 9.0, Total Bilirubin 0.30, AST 22, ALT 24, Alkaline Phosphatase 91, Total Protein 6.7, Albumin 3.5, Globulin 3.2, Albumin/Globulin Ratio 1.1 02/20/22 14:24: Ethyl Alcohol 20.0 02/20/22 14:24: Troponin I High Sens < 3 L 02/20/22 14:24: B-Natriuretic Peptide 110.7 H 02/20/22 14:45: Urine Opiates Screen NEGATIVE, Urine Methadone Screen NEGATIVE, Ur Barbiturates Screen NEGATIVE, Ur Phencyclidine Scrn NEGATIVE, Ur Amphetamines Screen NEGATIVE, MDMA (Ecstasy) Screen NEGATIVE, U Benzodiazepines Scrn NEGATIVE, Urine Cocaine Screen NEGATIVE, U Cannabinoids Screen NEGATIVE, Ur Drug Screen Comment 02/20/22 14:45: Urine Color Yellow, Urine Clarity Clear, Urine pH 5.0, Ur Specific [place] 1.020, Urine Protein Negative, Urine Glucose (UA) Normal, Urine Ketones Negative, Urine Occult Blood Negative, Urine Nitrite Negative, Urine Bilirubin Negative, Urine Urobilinogen Normal, Ur Leukocyte Esterase Negative, Urine RBC 0 SEEN, Urine WBC 0 SEEN, Ur Squamous Epith Cells 0 SEEN, Urine Bacteria 0 SEEN, Urine Mucus 0 SEEN Rhythm Strip Rhythm Strip: Sinus Rhythm Rate: 66 Ectopy: None Radiology Impression Chest X-Ray 02/20/22 15:34 IMPRESSION: No acute abnormality is seen. Electronically Signed: Duke Morales MD at 15:50 EDT Reading Location ID and State: [facility] / [place] , Service support , Assessment & Plan Assessment/Plan (1) Alcohol withdrawal: (2) Alcohol dependence: (3) Creatinine elevation: (4) Dehydration: (5) Anemia: (6) Elevated blood pressure reading: (7) Chest pain: PLAN: Acute alcohol withdrawal -Patient is currently drinking a half a pint of whiskey a day and more on the weekends -Underwent detox here in July 2021 but started drinking a couple weeks following -Did not follow-up with any counseling or AA meetings that she felt like she could do it herself -Start phenobarbital taper -Start thiamine and folate -Supportive medications for symptom management -180 consultation Mild serum creatinine elevation secondary to dehydration -Serum creatinine is overall unknown but is up from her previous admission -1.34 on admission -We will give IV fluids x1 L -Evaluate in a.m. Atypical chest pain -Patient reported intermittent chest pain that was not associated with exertion had no associated shortness of breath, nausea, diaphoresis -Able to do exertional activities at work without any symptoms -Patient indicated seem to be related to anxiety -EKG is unremarkable -Troponin was less than 3 -Monitor Mild anemia -Is normocytic -Wound slightly from previous admission -Continue to monitor -No further work-up at this time Hypertension with elevated blood pressure reading -Continue atenolol -Continue lisinopril -May need increase in doses however will hold off at this time given patient is actively withdrawing -Continue to monitor Seasonal allergies -Continue home medications Depression -Continue sertraline 50 mg at at bedtime DVT prophylaxis -Low risk -Early ambulation protocol CODE STATUS -Full code Charges/Coding Visit Charges Inpatient E&M: 05062 Init Hosp L3
[2022-02-20 16:51] VITALS: BP 155/80; PULSE 68; RESP 16; TEMP 36.4; O2SAT 98
[2022-02-20 16:53] VITALS: BMI 26.6
[2022-02-20] MEDS: Lactated Ringers 1,000 ML 100 ML IV (17:26)
[2022-02-20 17:28] VITALS: O2SAT 99
[2022-02-20] MEDS: 0.9% Saline Lock 10 ML Syringe IV (17:29)
[2022-02-20] MEDS: Phenobarbital 32.4 MG Tablet 64.8 MG PO ×2 (17:53→21:32)
[2022-02-20 21:20] VITALS: BP 133/70; PULSE 76; RESP 18; TEMP 37.1; O2SAT 98
[2022-02-20] MEDS: Dicyclomine 10 MG Capsule 20 MG PO (21:33)
[2022-02-20] MEDS: traZODone 100 MG Tablet PO (21:33)
[2022-02-20] MEDS: Lisinopril 2.5 MG Tablet PO (21:36)
[2022-02-20] MEDS: Atenolol 25 MG Tablet PO (21:36)
[2022-02-20] MEDS: Sertraline 50 MG Tablet PO (21:36)
[2022-02-21 02:55] VITALS: BP 103/63; PULSE 65; RESP 18; TEMP 36.4; O2SAT 94
[2022-02-21] MEDS: Phenobarbital 32.4 MG Tablet 64.8 MG PO ×6 (02:59→22:40)
[2022-02-21] MEDS: 0.9% Saline Lock 10 ML Syringe IV (02:59)
--- NOTE | 2022-02-21 07:34 | PCM.PN.HOSP ---
Subjective Subjective Patient is a 61-year-old lady with history of chronic alcohol dependence admitted with acute alcohol withdrawal Objective Data Objective Data Vital Signs: Vital Signs Temp Pulse Resp BP Pulse Ox 97.5 F L 65 18 103/63 94 02/21/22 02:55 02/21/22 02:55 02/21/22 02:55 02/21/22 02:55 02/21/22 02:55 Oxygen Delivery Method Room Air Weight: 66.134 kg Body Mass Index (BMI) 26.6 Intake & Output: Intake and Output for Last 24 Hours 02/19/22 02/20/22 02/21/22 23:59 23:59 23:59 Intake Total 200 / 200 961.67 / 961.67 Balance 200 / 200 961.67 / 961.67 Lab / Micro Data Result Diagrams: 02/20/22 14:24 02/20/22 14:24 Labs: Laboratory Results - last 24 hr 02/20/22 14:24: WBC 4.9, RBC 3.46 L, Hgb 11.5 L, Hct 34.2 L, MCV 98.8, MCH 33.2 H, MCHC 33.6, RDW Std Deviation 44.7 H, RDW Coeff of Johnathan 12.4, Plt Count 251, MPV 9.4, Immature Gran % (Auto) 0.200, Neut % (Auto) 59.8, Lymph % (Auto) 28.9, [place] % (Auto) 8.9, Eos % (Auto) 1.6, Baso % (Auto) 0.6, Absolute Neuts (auto) 2.9, Absolute Lymphs (auto) 1.40, Nucleated RBC % 0 02/20/22 14:24: PT 12.7, INR 1.0 02/20/22 14:24: Sodium 139, Potassium 4.0, Chloride 108 H, Carbon Dioxide 23.0, Anion Gap 8, BUN 21 H, Creatinine 1.34 H, Estim Creat Clear Calc 34.43, Est GFR (MDRD) Af Amer 52 L, Est GFR (MDRD) Non-Af 43 L, BUN/Creatinine Ratio 15.7, Glucose 122 H, Calcium 9.0, Total Bilirubin 0.30, AST 22, ALT 24, Alkaline Phosphatase 91, Total Protein 6.7, Albumin 3.5, Globulin 3.2, Albumin/Globulin Ratio 1.1 02/20/22 14:24: Ethyl Alcohol 20.0 02/20/22 14:24: Troponin I High Sens < 3 L 02/20/22 14:24: B-Natriuretic Peptide 110.7 H 02/20/22 14:45: Urine Opiates Screen NEGATIVE, Urine Methadone Screen NEGATIVE, Ur Barbiturates Screen NEGATIVE, Ur Phencyclidine Scrn NEGATIVE, Ur Amphetamines Screen NEGATIVE, MDMA (Ecstasy) Screen NEGATIVE, U Benzodiazepines Scrn NEGATIVE, Urine Cocaine Screen NEGATIVE, U Cannabinoids Screen NEGATIVE, Ur Drug Screen Comment 02/20/22 14:45: Urine Color Yellow, Urine Clarity Clear, Urine pH 5.0, Ur Specific [place] 1.020, Urine Protein Negative, Urine Glucose (UA) Normal, Urine Ketones Negative, Urine Occult Blood Negative, Urine Nitrite Negative, Urine Bilirubin Negative, Urine Urobilinogen Normal, Ur Leukocyte Esterase Negative, Urine RBC 0 SEEN, Urine WBC 0 SEEN, Ur Squamous Epith Cells 0 SEEN, Urine Bacteria 0 SEEN, Urine Mucus 0 SEEN Radiography Diagnostic Testing: Radiology Impression Chest X-Ray 02/20/22 15:34 IMPRESSION: No acute abnormality is seen. Electronically Signed: Duke Morales MD at 15:50 EDT , Rhythm Strip Rhythm Strip: Sinus Rhythm Rate: 66 Ectopy: None Physical Exam Narrative GENERAL: cooperative HEENT: Atraumatic; EYES; Anicteric, Normal Conjunctiva NECK; supple, normal thyroid, RESPIRATORY: Diminished to auscultation CARDIOVASCULAR: Regular S1 S2, GI: soft, normoactive bowel sounds, : No Renal angle tenderness; EXTREMITIES: No edema, no clubbing, MUSCULOSKELETAL: no muscle wasting NEURO: Awake; no lateralizing signs. SKIN: No Rash PSYCH; Flat affect Assessment & Plan Assessment/Plan (1) Alcohol withdrawal: (2) Alcohol dependence: (3) Creatinine elevation: (4) Dehydration: (5) Anemia: (6) Elevated blood pressure reading: (7) Chest pain: PLAN: Patient is a 61-year-old lady with history of chronic alcohol dependence admitted with acute alcohol withdrawal 1. Acute alcohol withdrawal ?Patient has been admitted to regular nursing floor currently being managed with phenobarb taper in addition to supportive medication for symptom management. 2. Acute renal insufficiency ?Creatinine on admission was 1.34 started on IV fluid with subsequent monitoring of electrolytes ordered 3. Anemia - Secondary to chronic disorder monitoring H&H and transfuse if patient becomes symptomatic or hemoglobin falls below 7 4. Hypertension - Blood pressure controlled, home medications continued with dose adjustment as needed 5. Seasonal allergies ?Patient is a 59 6. Depression ?Patient is on sertraline did continue with home dose 7. DVT prophylaxis -low risk did encourage ambulation Charges/Coding Visit Charges Inpatient E&M: 03749 Subs Hosp L3
[2022-02-21] MEDS: Vitamin B Comp W-C Capsule 1 CAP PO (08:35)
[2022-02-21] MEDS: Famotidine 20 MG Tablet PO (08:35)
[2022-02-21] MEDS: Loratadine 10 MG Tablet PO (08:36)
[2022-02-21] MEDS: Atenolol 25 MG Tablet PO ×2 (08:36→22:41)
[2022-02-21] MEDS: Folic Acid 1 MG Tablet PO (08:36)
[2022-02-21] MEDS: Thiamine Hydrochloride 100 MG Tablet PO (08:36)
[2022-02-21 08:40] VITALS: BP 138/75; PULSE 69; RESP 16; TEMP 36.2; O2SAT 96
[2022-02-21] MEDS: Lisinopril 2.5 MG Tablet PO ×2 (08:41→22:42)
[2022-02-21 09:09] LABS: Anion Gap 3 (5-15); BUN 18 mg/dL (7-18); BUN/Creat Ratio 14.2 RATIO (10-20); Chloride 109 mmol/L (98-107); Creatinine, Serum 1.27 mg/dL (0.55-1.02); EST Glomerular Filtration Rate 45 mL/min (>60); Est Glom Filt Rate - Afr Amer 55 mL/min (>60); Estimated Creatinine Clearance 36.33 ml/min; Glucose 104 mg/dL (74-106); Potassium 4.1 mmol/L (3.5-5.1); Sodium Level 139 mmol/L (136-145)
--- NOTE | 2022-02-21 11:00 | ADDICTION ---
This lead technical writer met with PT to conduct ASAM, MSE, AUDIT assessments and to plan for d/c. PT A+Ox4 and participated actively. All assessments completed and placed in PT's chart. PT plans to f/u with [facility] for follow-up treatment services. PT did not indicate a need for transportation post d/c from [facility].
[2022-02-21 13:05] VITALS: BP 132/70; PULSE 65; RESP 16; TEMP 36.3; O2SAT 98
[2022-02-21 16:57] VITALS: BP 111/65; PULSE 65; RESP 18; TEMP 36.2; O2SAT 98
[2022-02-21 22:40] VITALS: BP 119/50; PULSE 65; RESP 16; TEMP 36.4; O2SAT 96
[2022-02-21] MEDS: Sertraline 50 MG Tablet PO (22:42)
[2022-02-22] MEDS: Phenobarbital 32.4 MG Tablet 64.8 MG PO ×6 (03:04→21:57)
[2022-02-22 03:10] VITALS: BP 114/60; PULSE 68; RESP 18; TEMP 36.3; O2SAT 98
[2022-02-22 07:44] VITALS: BP 110/68; PULSE 63; RESP 16; TEMP 36.6; O2SAT 93
[2022-02-22] MEDS: Folic Acid 1 MG Tablet PO (07:53)
[2022-02-22] MEDS: Vitamin B Comp W-C Capsule 1 CAP PO (07:53)
[2022-02-22] MEDS: Thiamine Hydrochloride 100 MG Tablet PO (07:53)
[2022-02-22 08:56] LABS: Absolute Lymphocyte Count 1.68 X10^3/uL (0.83-4.51); Absolute Neutrophil Count 2.6 X10^3/uL (2.0-7.7); Basophil# 0.05 X10^3/uL; Eosinophil# 0.18 X10^3/uL; Eosinophils% 3.7 % (0-5); Hematocrit 34.5 % (37-47); Hemoglobin 11.4 g/dL (12.0-15.0); Lymphocyte # 1.68 X10^3/ul (0.83-4.51); Lymphocyte % 34.5 % (19-41); Mean Corpuscular Hgb 33.3 pg (27.0-32.0); Mean Corpuscular Volume 100.9 fL (81-99); Mean Platelet Vol. 9.4 fl (6.2-12.0); Monocyte# 0.36 X10^3/uL; Monocyte% 7.4 % (0-10); NRBC Flagged by Analyzer 0 % (0-5); Neutrophil # 2.58 X10^3/uL (2.7-7.7); Platelet Count 200 K/mm3 (150-450); RBC Distribution Width CV 12.3 % (11.6-14.6); RBC Distribution Width SD 45.4 fl (35.1-43.9); Red Blood Count 3.42 M/mm3 (4.2-5.4); White Blood Count 4.9 K/mm3 (4.4-11.0)
[2022-02-22 09:16] LABS: Anion Gap 4 (5-15); BUN 19 mg/dL (7-18); Calcium,Total 8.8 mg/dL (8.5-10.1); Chloride 106 mmol/L (98-107); Creatinine, Serum 1.12 mg/dL (0.55-1.02); EST Glomerular Filtration Rate 52 mL/min (>60); Est Glom Filt Rate - Afr Amer 63 mL/min (>60); Estimated Creatinine Clearance 41.19 ml/min; Glucose 109 mg/dL (74-106); Potassium 4.1 mmol/L (3.5-5.1); Sodium Level 137 mmol/L (136-145)
[2022-02-22] MEDS: Famotidine 20 MG Tablet PO (10:10)
[2022-02-22] MEDS: Loratadine 10 MG Tablet PO (10:10)
[2022-02-22] MEDS: Atenolol 25 MG Tablet PO ×2 (10:10→21:57)
[2022-02-22] MEDS: Lisinopril 2.5 MG Tablet PO ×2 (10:10→21:57)
--- NOTE | 2022-02-22 11:38 | PN.HOSP_ITS ---
Subjective Subjective Patient seen and examined. She had an uneventful night and had no complaints this morning. Review of systems otherwise negative. Objective Data Objective Data Vital Signs: Vital Signs Temp Pulse Resp BP Pulse Ox 97.8 F 63 16 110/68 93 02/22/22 07:44 02/22/22 07:44 02/22/22 07:44 02/22/22 07:44 02/22/22 07:44 Oxygen Delivery Method Room Air Weight: 145 lb 12.8 oz Body Mass Index (BMI) 26.6 Intake & Output: Intake and Output for Last 24 Hours 02/20/22 02/21/22 02/22/22 23:59 23:59 23:59 Intake Total 200 / 200 1161.67 / 1161.67 Balance 200 / 200 1161.67 / 1161.67 Lab / Micro Data Result Diagrams: 02/22/22 08:48 02/22/22 08:48 Labs: Laboratory Results - last 24 hr 02/22/22 08:48: WBC 4.9, RBC 3.42 L, Hgb 11.4 L, Hct 34.5 L, MCV 100.9 H, MCH 33.3 H, MCHC 33.0, RDW Std Deviation 45.4 H, RDW Coeff of Johnathan 12.3, Plt Count 200, MPV 9.4, Immature Gran % (Auto) 0.400, Neut % (Auto) 53.0, Lymph % (Auto) 34.5, [place] % (Auto) 7.4, Eos % (Auto) 3.7, Baso % (Auto) 1.0, Absolute Neuts (a uto) 2.6, Absolute Lymphs (auto) 1.68, Nucleated RBC % 0 02/22/22 08:48: Sodium 137, Potassium 4.1, Chloride 106, Carbon Dioxide 27.0, Anion Gap 4 L, BUN 19 H, Creatinine 1.12 H, Estim Creat Clear Calc 41.19, Est GFR (MDRD) Af Amer 63, Est GFR (MDRD) Non-Af 52 L, BUN/Creatinine Ratio 17.0, Glucose 109 H, Calcium 8.8 Rhythm Strip Rhythm Strip: Sinus Rhythm Rate: 66 Ectopy: None Physical Exam Const alert, oriented x3 and no apparent distress HEENT head/scalp atraumatic and moist oral mucous membranes Head and Scalp: normocephalic Eyes PERRL, EOMs intact bilaterally and conjunctivae normal Neck no lymphadenopathy, supple and no JVD Resp normal respiratory effort, no retractions, no use of accessory muscles and clear to auscultation bilaterally Cardio regular rate, regular rhythm, S1 normal heart sound, S2 normal heart sound and no murmurs GI normal to inspection, nondistended, normoactive bowel sounds, soft to palpation and non-tender Extremity normal to inspection, full ROM and no clubbing, cyanosis or edema Peripheral Pulses: Yes pulses 2+ throughout Skin no rashes or lesions noted Neuro oriented x3, CN's II-XII intact bilaterally and moves all extremities Sensorium / Orientation: awake and alert Psych affect normal Assessment & Plan Assessment/Plan (1) Alcohol withdrawal: (2) Creatinine elevation: PLAN: #Acute alcohol withdrawal * On alcohol withdrawal protocol with buprenorphine. * On thiamine, folic acid and multivitamin * Monitor CIWA score * #Elevated creatinine: Trended down. Creatinine is down to 1.12. #Anemia: Stable. Hb is 11.4 Hypertension: Continue home meds-atenolol, lisinopril #Depression: On sertraline DVT prophylaxis: Low risk. Encourage ambulation. Charges/Coding Visit Charges Inpatient E&M: 59849 Subs Hosp L2
[2022-02-22 13:50] VITALS: BP 110/70; PULSE 75; RESP 16; TEMP 36.7; O2SAT 98
[2022-02-22 21:55] VITALS: BP 104/58; PULSE 72; RESP 18; TEMP 36.7; O2SAT 93
[2022-02-22] MEDS: Sertraline 50 MG Tablet PO (21:57)
[2022-02-23 02:17] VITALS: BP 109/58; PULSE 63; RESP 18; TEMP 36.6; O2SAT 95
[2022-02-23] MEDS: Phenobarbital 32.4 MG Tablet 64.8 MG PO (02:18)
[2022-02-23 08:16] VITALS: BP 96/58; PULSE 74; RESP 16; TEMP 36.4; O2SAT 99
[2022-02-23] MEDS: Loratadine 10 MG Tablet PO (08:19)
[2022-02-23] MEDS: Folic Acid 1 MG Tablet PO (08:19)
[2022-02-23] MEDS: Famotidine 20 MG Tablet PO (08:19)
[2022-02-23] MEDS: Vitamin B Comp W-C Capsule 1 CAP PO (08:19)
[2022-02-23] MEDS: Thiamine Hydrochloride 100 MG Tablet PO (08:19)
--- NOTE | 2022-02-23 10:04 | PCM.DC.SUM ---
Providers Date of Admission: 02/20/22 Primary Care Physician: TJ BRONSON Reason For Visit: ALCOHOL DETOX Diagnosis Discharge Diagnosis (1) Alcohol withdrawal: Status: Acute Code(s): F10.239 - Alcohol dependence with withdrawal, unspecified (2) Creatinine elevation: Status: Acute Code(s): R79.89 - Other specified abnormal findings of blood chemistry Medications at Discharge Home Medications atenolol 25 mg PO BID 07/25/21 lisinopril 2.5 mg PO BID 07/25/21 sertraline 50 mg PO QHS 07/25/21 cetirizine 10 mg PO QHS 02/20/22 cimetidine 200 mg PO DAILY 02/20/22 folic acid 1 mg PO DAILY@0800 02/20/22 naproxen sodium 220 mg PO BID PRN 02/20/22 vitamin B complex [Vitamins B Complex] 1 tab PO DAILY 02/20/22 Weight / BMI Weight Weight: 145 lb 12.8 oz Body Mass Index (BMI) 26.6 ABG / Lab / Microbiology Data Result Diagrams: 02/22/22 08:48 02/22/22 08:48 Discharge Plan Admission Admit Date/Time: 02/20/22 15:49 Attending Provider: Kayleigh Monte Discharge Orders/Prescriptions Prescriptions: No Action atenolol 25 mg tablet 25 mg PO BID RF: 0 sertraline 50 mg tablet 50 mg PO QHS RF: 0 lisinopril 2.5 mg tablet 2.5 mg PO BID RF: 0 cetirizine 10 mg tablet 10 mg PO QHS RF: 0 cimetidine 200 mg tablet 200 mg PO DAILY RF: 0 vitamin B complex [Vitamins B Complex] Tablet 1 tab PO DAILY RF: 0 naproxen sodium 220 mg tablet 220 mg PO BID PRN (Reason: Pain) RF: 0 folic acid 1 mg tablet 1 mg PO DAILY@0800 RF: 0
[2022-02-23 10:32] VITALS: BP 101/65; BP 93/63; BP 94/59; PULSE 74
[2022-02-23] MEDS: 0.9% Normal Saline 1,000 ML 999 ML IV (10:54)
[2022-02-23 12:06] VITALS: BP 106/65; PULSE 65; RESP 18; TEMP 36.7; O2SAT 97
--- NOTE | 2022-02-23 12:31 | PCM.DC.SUM ---
Providers Date of Admission: 02/20/22 Primary Care Physician: TJ BRONSON Reason For Visit: ALCOHOL DETOX Diagnosis Discharge Diagnosis (1) Alcohol withdrawal: Status: Acute Code(s): F10.239 - Alcohol dependence with withdrawal, unspecified (2) Creatinine elevation: Status: Acute Code(s): R79.89 - Other specified abnormal findings of blood chemistry Medications at Discharge Home Medications atenolol 25 mg PO BID 07/25/21 sertraline 50 mg PO QHS 07/25/21 cetirizine 10 mg PO QHS 02/20/22 cimetidine 200 mg PO DAILY 02/20/22 folic acid 1 mg PO DAILY@0800 02/20/22 naproxen sodium 220 mg PO BID PRN 02/20/22 vitamin B complex [Vitamins B Complex] 1 tab PO DAILY 02/20/22 Hospital Course Operations None Procedures None Summary of Care Provided Minutes Spent on Discharge: 45 Hospital Course: Patient is a 61-year-old female with a past medical history as outlined was admitted through the ED on 02/20/2022 for acute alcohol detox. Patient drank about half a pint of whiskey every day and more on the weekends. He had gone through the detox process in July 2021 but started drinking about 2 weeks subsequent to that. She also complained of some brief episode of chest pain and troponins done were negative. EKG showed no acute ST changes and chest x-ray was also normal. She was admitted and managed for acute alcohol withdrawal and started on alcohol withdrawal protocol with buprenorphine. She tolerated the 3-day detox process. Hospital course was complicated by her blood pressure running slightly low. She was asymptomatic. Her lisinopril was therefore discontinued and she was continued on her atenolol. She was discharged on 02/23/2021 counseled to remain orally well-hydrated. She is also to keep a blood pressure log and check her blood pressure twice daily in the morning and evening presents with PCP for adjustment of her blood pressure medication as needed. Patient seen and examined prior to discharge. She had no active complaints and felt well. Review of systems otherwise negative. Labs and vitals reviewed. Home medication reviewed and reconciled. Physical Exam Const alert, oriented x3, no apparent distress, average body habitus, healthy appearing and well nourished General Appearance: cooperative and comfortable Orientation / Consciousness: awake Exam Limitations: no limitations HEENT normocephalic, head/scalp atraumatic, hearing grossly normal bilaterally and moist oral mucous membranes Eyes PERRL, EOMs intact bilaterally and conjunctivae normal Neck no lymphadenopathy, supple, no JVD and no carotid bruits Resp normal respiratory effort, no retractions, no use of accessory muscles and clear to auscultation bilaterally Auscultation: Negative for crackles, rales, rhonchi or wheezes Cardio regular rate, regular rhythm, S1 normal heart sound, S2 normal heart sound, no murmurs, no rub, no gallops, no clicks and no JVD GI normal to inspection, nondistended, normoactive bowel sounds, soft to palpation, non-tender and non-distended; Negative for hepatosplenomegaly Extremity normal to inspection, full ROM and no clubbing, cyanosis or edema Skin no rashes or lesions noted, no wounds, skin turgor normal, no jaundice, no petechiae and no mottling Neuro oriented x3, CN's II-XII intact bilaterally, moves all extremities and no focal motor deficits Sensorium / Orientation: awake and alert Speech: speech normal Motor Exam: strength 5/5 throughout Psych affect normal Mood & Affect: anxious Weight / BMI Weight Weight: 145 lb 12.8 oz Body Mass Index (BMI) 26.6 ABG / Lab / Microbiology Data Result Diagrams: 02/22/22 08:48 02/22/22 08:48 D/C Instructions Discharge Diet: Low fat / Low cholesterol Discharge Activity: Return to Normal Activity Weight Bearing Status: Weight bearing as tolerated Call your doctor if you observe: Fever of 101 or Higher, Shortness of breath, Dizziness, Swelling in the ankles and Chest pain Meaningful Use Info Meaningful Use Diagnoses (Choose all that apply): None applicable Discharge Plan Admission Admit Date/Time: 02/20/22 15:49 Primary Reason for Your Visit: acute alcohol withdrawal Attending Provider: Kayleigh Monte Instructions Patient Instructions: Alcohol Addiction, Alcohol Withdrawal: What to Expect Discharge Orders/Prescriptions Prescriptions: Continued atenolol 25 mg tablet 25 mg PO BID RF: 0 sertraline 50 mg tablet 50 mg PO QHS RF: 0 cetirizine 10 mg tablet 10 mg PO QHS RF: 0 cimetidine 200 mg tablet 200 mg PO DAILY RF: 0 vitamin B complex [Vitamins B Complex] Tablet 1 tab PO DAILY RF: 0 naproxen sodium 220 mg tablet 220 mg PO BID PRN (Reason: Pain) RF: 0 folic acid 1 mg tablet 1 mg PO DAILY@0800 RF: 0 Discontinued lisinopril 2.5 mg tablet 2.5 mg PO BID RF: 0 Referrals / Follow Up: TJ BRONSON [Other] - Within 2 Weeks Disposition Disposition (needs filled in before D/C Order can be placed): Home, Self Care Charges/Coding Visit Charges Inpatient E&M: 60129 Disch Hosp
== END 2022-02-23 14:32 | disposition home or self-care (01) | DRG 897 ==
LOC: ED 14:33 → MS3 15:53
PROVIDERS: Internal Medicine; Admitting Provider Internal Medicine; Emergency Provider Emergency Medicine; Visit Provider Student in an Organized Health Care Education/Training Program
DX: F10.239 Alcohol dependence with withdrawal, unspecified (principal); D63.8 Anemia in other chronic diseases classified elsewhere; I95.9 Hypotension, unspecified; I10 Essential (primary) hypertension; E78.5 Hyperlipidemia, unspecified; J30.2 Other seasonal allergic rhinitis; E86.0 Dehydration; N28.9 Disorder of kidney and ureter, unspecified; R07.9 Chest pain, unspecified; F32.A Depression, unspecified; Z79.899 Other long term (current) drug therapy; Z87.891 Personal history of nicotine dependence
CPT/HCPCS: 36415; 71045; 80048; 80053; 80307; 81001; 82077; 83880; 84484; 85025; 85610; 93005; 99251; 99284; J7030; J7120; A4216; G0463

== ENCOUNTER 2023-05-20 10:51 | Emergency (ER) | payer OTHER, SELFPAY ==
[2023-05-20 10:53] VITALS: BP 186/100; PULSE 73; RESP 16; TEMP 36.5; O2SAT 99; BMI 29.2
--- NOTE | 2023-05-20 11:15 | EKG12_ITS ---
Test Reason : CP Blood Pressure : / mmHG Vent. Rate : 065 BPM Atrial Rate : 065 BPM P-R Int : 142 ms QRS Dur : 082 ms QT Int : 406 ms P-R-T Axes : 035 028 016 degrees QTc Int : 422 ms Normal sinus rhythm Normal ECG Confirmed by LON GIRON, HARMAN ([id number]), newspaper managing editor ALIZE JO ([id number]) on 05/22/2023 11:26:14 AM Referred By: ESSENCE Confirmed By:AUGIE FORREST MD
--- NOTE | 2023-05-20 11:20 | RAD_ITS ---
STUDY: X-RAY CHEST REASON FOR EXAM: Female, 62 years old. Chest pain TECHNIQUE: Single AP portable view of the chest. COMPARISON: Comparison is made with prior study February 20, 2022. FINDINGS: EKG electrodes are seen. The lungs are clear and expanded. There is no demonstrated pleural abnormality. Normal size heart. Normal mediastinum and samuel. Normal visualized pulmonary arteries. There is atherosclerotic tortuosity of the aortic arch and descending thoracic aorta. There are diffuse degenerative changes of the visualized thoracic spine. Normal visualized ribs, clavicles, and shoulders. There is no demonstrated abnormality of the visualized soft tissue structures of the upper abdomen. RAD/Chest 1 View (Portable) IMPRESSION: No acute abnormality is seen. Electronically Signed: Duke Morales MD at 11:53 EDT ,
[2023-05-20 11:22] LABS: Absolute Lymphocyte Count 2.45 X10^3/uL (0.83-4.51); Absolute Neutrophil Count 4.5 X10^3/uL (2.0-7.7); Basophil# 0.07 X10^3/uL; Basophil% 0.9 % (0-1); Eosinophil# 0.23 X10^3/uL; Eosinophils% 2.9 % (0-5); Hematocrit 43.1 % (37-47); Lymphocyte # 2.45 X10^3/ul (0.83-4.51); Mean Corp Hgb Conc 32.5 g/dL (32-36); Mean Corpuscular Hgb 31.8 pg (27.0-32.0); Mean Platelet Vol. 9.7 fl (6.2-12.0); Monocyte# 0.64 X10^3/uL; Monocyte% 8.1 % (0-10); NRBC Flagged by Analyzer 0 % (0-5); Neutrophil # 4.47 X10^3/uL (2.7-7.7); Neutrophil % 56.5 % (47-70); Platelet Count 312 K/mm3 (150-450); RBC Distribution Width CV 12.9 % (11.6-14.6); RBC Distribution Width SD 45.9 fl (35.1-43.9); White Blood Count 7.9 K/mm3 (4.4-11.0)
--- NOTE | 2023-05-20 11:24 | EDS_ITS ---
HPI History of Present Illness Chief Complaint: Chest Pain Informant: patient and spouse/S.O. Onset/Context/Timing Onset: Weeks Activity at onset: gradual Timing: Intermittent Quality: Positive for Burning Location: Substernal Current Severity: Mild Maximum Severity: Mild Worsened By: - (Supine it feels worse.); Not Worsened By Exertion, Movement of Arm, Movement of Torso, Eating, Palpation, Breathing or Coughing Relieved By: - (Sitting upright makes it feel better.) Associated Symptoms: Positive for Acid Reflux; Negative for Nausea, Vomiting, Diaphoresis, Dyspnea, Cough, Fever, Lightheadedness or Palpitations Narrative Narrative: 62-year-old female history of hypertension no prior cardiac disease nor pancreatitis nor liver disease. States she has had epigastric and chest pain for the last month intermittent. Worse upon better upright. At times more uncomfortable with food or drinking. Denies nausea or vomiting. No diarrhea, dysuria nor melena. No fever. She has had a prior cholecystectomy. Has a history of reflux for which she uses Pepcid. Denies any cardiac history. No exertional chest pain. No history of DVT or PE or risk factors. Prior Similar Symptoms: Yes Recent Illness/Hospitalization: No CVD Risk Factors: Positive for Hypertension; Negative for Diabetes or Smoking PE Risk Factors: Negative for Recent Travel/Surgery, Recent Immobilization, Prior DVT or PE, Cancer or OCP + Smoking + >/=35 TAD Risk Factors: Negative for Marfan's Syndrome PFSH PFSH Medical History Alcohol dependence Alcoholism Anemia Anxiety Cholecystectomy planned Colitis Depression GERD (gastroesophageal reflux disease) Hyperlipemia Hypertension Non-smoker Home Medications atenolol 25 mg tablet 25 mg PO BID HTN 07/25/21 [History Last Taken 02/20/22] sertraline 50 mg tablet 50 mg PO QHS depression 07/25/21 [History Last Taken 02/19/22] cetirizine 10 mg tablet 10 mg PO QHS allergies 02/20/22 [History Last Taken 02/19/22] cimetidine 200 mg tablet 200 mg PO DAILY heartburn 02/20/22 [History Last Taken 02/20/22] folic acid 1 mg tablet 1 mg PO DAILY@0800 supplement 02/20/22 [History Last Taken 02/20/22] naproxen sodium 220 mg tablet 220 mg PO BID PRN Pain 02/20/22 [History Last Taken Unknown] vitamin B complex (Vitamins B Complex tablet) 1 tab PO DAILY supplement 02/20/22 [History Last Taken 02/20/22] pantoprazole 40 mg tablet,delayed release (Protonix) 40 mg PO DAILY 30 days #30 tabs 05/20/23 [Rx Last Taken Unknown] Allergy/AdvReac Type Severity Reaction Status Date / Time aspirin AdvReac JITTERY Verified 05/20/23 10:54 Cmbkxfi-BMB-BuX Reductase AdvReac FEELS LIKE Verified 05/20/23 10:54 Inhibitor LIPS ARE [Viijavr-Kth-Hty Reductase ON FIRE Inhibitor] Family History Other COPD (chronic obstructive pulmonary disease) Heart disease Hypertension Surgical History History of cholecystectomy Social History household members: spouse Smoking Status: Former smoker alcohol intake: current alcohol intake frequency: 3 or more drinks per day Alcohol type: hard liquor Previous attempts at quittin details: Was admitted July 2021 with no follow-up pursued and was sober for 2wk substance use type: does not use what type of physical activity do you participate in: none do you feel safe at home: Yes ROS ROS ED ROS Narrative Epigastric and chest discomfort. Review of Systems ROS Unobtainable: Denies due to encephalopathy Constitutional Constitutional ED: Denies chills or fever(s) ENT ENT ED: Denies ear pain Cardiovascular Cardiovascular: Reports as per HPI and chest pain; Denies palpitations or racing heartbeat Respiratory/Chest Respiratory/Chest: Denies cough or dyspnea Gastrointestinal Gastrointestinal: Reports abdominal pain; Denies constipation, diarrhea, melena, nausea or vomiting Genitourinary Genitourinary ED: Denies dysuria or hematuria Musculoskeletal Musculoskeletal: Denies arthralgias Integumentary Denies abscess Neurologic Neurologic: Denies headache(s) Psychiatric Psychiatric: Denies anxiety Endocrine Endocrinology: Denies cold intolerance Hematologic/Lymphatic Hematologic/Lymphatic: Denies easy bleeding or easy bruising Allergic/Immunologic Allergic/Immunologic ED: Denies mouth swelling or tongue swelling EXAM Physical Exam Narrative Exam Narrative: 2-year-old female no acute distress vital signs stable afebrile. Pulse ox 9 9% on room air no hypoxia. seated in the room. H EENT exam unremarkable. Neck nontender no JVD. Lungs clear to auscultation bilaterally. Heart regular rhythm rate about 70 no murmur. Chest wall nontender. Abdomen soft nontender. No epigastric or right upper quadrant abdominal pain. No peritoneal signs. No pulsatile mass. No distention. Moving all 4 extremities. Calves nontender without edema. Equal symmetrical radial pulses. 5-5 clinical documentation consultant strength. Dorsi plantarflexion intact. Back nontender. Neurologically she is awake and alert with no focal motor deficits. Const Vital Signs: 05/20/23 10:53 05/20/23 11:15 05/20/23 11:16 Temperature 97.7 F L Temperature Source Temporal Pulse Rate 73 Respiratory Rate 16 Respiratory Effort Normal Blood Pressure 186/100 H Blood Pressure Mean 128 Pulse Ox 99 Oxygen Delivery Method Room Air Room Air 05/20/23 12:55 Temperature Temperature Source Pulse Rate 67 Respiratory Rate 15 Respiratory Effort Blood Pressure 160/74 H Blood Pressure Mean 102 Pulse Ox Oxygen Delivery Method Room Air Positive well nourished and well developed; Negative for cachectic, contractures or unkempt General Appearance ED: well developed and NAD; Negative for unkempt, cachectic, contractures or pallor Nutritional Appearance: Negative for cachectic HEENT Reports moist mucous membranes; Denies dry mucous membranes normocephalic and atraumatic; Negative for trauma or tenderness Mouth ED: No dry mucous membranes Mouth: No dry mucous membranes Eyes PERRL and EOMs intact bilaterally General Eye ED: Negative for pale conjunctiva or scleral icterus Neck no lymphadenopathy, supple and no JVD General: Negative for tenderness Chest Wall inspection of chest normal and palpation of chest normal Resp normal respiratory effort and clear to auscultation bilaterally Effort and Inspection: Negative for respiratory distress Auscultation: Negative for rales, rhonchi or wheezes Cardio regular rate, regular rhythm, S1 normal heart sound, S2 normal heart sound and no murmurs Rate: Negative for bradycardia or tachycardic Rhythm: Negative for abnormal rhythm Peripheral Pulses: pulses 2+ throughout GI normal to inspection, nondistended, normoactive bowel sounds, soft to palpation, non-tender, non-distended and no masses Auscultation: Negative for hyperactive bowel sounds Palpation: Negative for splenomegaly or mass Back/Spine no CVA tenderness and no thoracic nor lumbar tenderness General Back: Negative for CVA tenderness Cervical Spine: Negative for cervical spine tenderness Extremity normal to inspection General Extremety ED: Negative for edema, pulses abnormal or tenderness General Extremity: Negative for edema or pulses abnormal Neuro oriented x3 and CN's II-XII intact bilaterally Sensorium / Orientation: awake, alert, oriented to person, oriented to place and oriented to time; Negative for confused, lethargic or stuporous Sensory Exam: No sensory level loss detected Psych mental status grossly normal Appearance: Negative for unkempt Attitude: No agitated Mood & Affect: Negative for depressed, anxious or tearful Skin no rashes or lesions noted and no wounds General Skin Exam: Negative for jaundice or pallor Rashes: No rashes noted Trauma: Negative for abrasion or laceration Heart Score History: Slightly/Non-Suspicious ECG: Normal Age: >45 - <65 years Risk Factors: No Risk Factors Troponin: </= Normal Limit Score: 1 MDM MDM MDM Narrative Medical decision making narrative: 62-year-old epigastric chest discomfort. Clinically does not sound cardiac. She undergo a cardiac evaluation. She has no risk factors for DVT or PE. P hysical exam is benign. Clinically I think this is most likely reflux or gastritis. She has had a prior cholecystectomy. The repeat exam patient is doing well at 1:10 PM. We went over all of her test results. Her exam is benign. She will be discharged home with outpatient follow-up. She will be placed on Protonix for possible reflux. She is already taking Pepcid. Outpatient follow-up. Given that she has had this for approximately 4 weeks I do not think she needs a 2-hour troponin. History & Record Review Discussion w/independent historian: Patient Additional record(s) reviewed:: Prior inpatient record, Prior outpatient record, Prior ED visit and Prior labs Lab Data Attestation: I reviewed the patient's lab results. Lab results narrative: CBC shows a white count 7.9. H&H of 14 and 43. Platelets 312. Chemistries show a gap of 8. BUN and creatinine of 14 and 1. Glucose 122. Liver enzymes unremarkable. Troponin 4. Lipase 32. EKG unremarkable. Chest x-ray unremarkable. Labs: Laboratory Results - last 24 hr 05/20/23 11:10 WBC 7.9 RBC 4.40 Hgb 14.0 Hct 43.1 MCV 98.0 MCH 31.8 MCHC 32.5 RDW Std Deviation 45.9 H RDW Coeff of Jhonathan 12.9 Plt Count 312 MPV 9.7 Immature Gran % (Auto) 0.600 Neut % (Auto) 56.5 Lymph % (Auto) 31.0 Canadian % (Auto) 8.1 Eos % (Auto) 2.9 Baso % (Auto) 0.9 Absolute Neuts (auto) 4.5 Absolute Lymphs (auto) 2.45 Nucleated RBC % 0 Sodium 137 Potassium 3.7 Chloride 105 Carbon Dioxide 24.0 Anion Gap 8 BUN 14 Creatinine 1.08 H Estim Creat Clear Calc 42.17 Est GFR (MDRD) Af Amer 66 Est GFR (MDRD) Non-Af 54 L BUN/Creatinine Ratio 13.0 Glucose 122 H Calcium 9.8 Total Bilirubin 0.90 Direct Bilirubin 0.18 AST 23 ALT 23 Alkaline Phosphatase 127 H Troponin I High Sens 4 Total Protein 7.6 Albumin 3.7 Globulin 3.9 Lipase 32 Radiography Chest X-Ray - ED: 1 View, Read by ED Physician, Read by Radiologist, Heart, Lungs, Mediastinum, Bony Structures, No Acute Disease and Chronic Changes Diagnostic Testing: Clinical Impression(s) from Imaging Studies Chest X-Ray 05/20/23 11:20 IMPRESSION: No acute abnormality is seen. Electronically Signed: Duke Morales MD at 11:53 EDT Reading Location ID and State: [facility] / [place] , Service support , Chest x-ray, portable, single view interpreted both by myself and the radiologist shows no acute abnormality. Normal cardiac silhouette. Normal mediastinum. Normal lung menjivar. Rhythm Strip Rhythm Strip: Sinus Rhythm Rate: 65 Ectopy: None EKG Initial EKG: Attestation: I personally reviewed and interpreted this EKG as follows: Interpretation: No Acute Injury Pattern Comments: Normal sinus rhythm rate of 65 no acute signs of [place] or ischemia. Discharge Plan Triage Chief Complaint: Chest Pain ED Provider: Abel Vidales Dx/Rx/DC Orders Clinical Impression: Acid reflux, Chest pain Instructions: ED Chest Pain, Noncardiac, ED GERD (Adult) Prescriptions: New pantoprazole [Protonix] 40 mg tablet,delayed release (DR/EC) 40 mg PO DAILY 30 Days Qty: 30 0RF No Action atenolol 25 mg tablet 25 mg PO BID Patient Comments: take 1 tablet by mouth twice a day sertraline 50 mg tablet 50 mg PO QHS Patient Comments: take 1 tablet by mouth once daily cetirizine 10 mg tablet 10 mg PO QHS cimetidine 200 mg tablet 200 mg PO DAILY vitamin B complex [Vitamins B Complex] Tablet 1 tab PO DAILY Patient Comments: TAKE 1 TABLET BY MOUTH EVERY DAY naproxen sodium 220 mg tablet 220 mg PO BID PRN (Reason: Pain) Patient Comments: TAKE 1 TABLET BY MOUTH EVERY 12 HOURS folic acid 1 mg tablet 1 mg PO DAILY@0800 Primary Care Provider: Yolanda Espinoza Referrals: TJ BRONSON [Other] Activity Restrictions/Additional Instructions: This sounds like reflux. I added Protonix which is a anti-stomach acid medication. Take it daily. You may continue your Pepcid. Follow-up with your doctor if not improving. Your labs, chest x-ray and EKG today were all unremarkable. Disposition Disposition: Home, Self Care
[2023-05-20 11:38] LABS: AST(SGOT) 23 U/L (15-37); Alanine Aminotransfer ALT/SGPT 23 U/L (13-56); Albumin, Serum 3.7 g/dL (3.2-5.0); Alkaline Phosphatase 127 U/L (45-117); Anion Gap 8 (5-15); BUN 14 mg/dL (7-18); Bilirubin, Direct 0.18 mg/dL (0.00-0.30); Calcium,Total 9.8 mg/dL (8.5-10.1); Chloride 105 mmol/L (98-107); Creatinine, Serum 1.08 mg/dL (0.55-1.02); EST Glomerular Filtration Rate 54 mL/min (>60); Est Glom Filt Rate - Afr Amer 66 mL/min (>60); Estimated Creatinine Clearance 42.17 ml/min; Globulin 3.9 g/dL (2.2-4.2); Glucose 122 mg/dL (74-106); Lipase 32 U/L (13-75); Potassium 3.7 mmol/L (3.5-5.1); Protein, Total 7.6 g/dL (6.4-8.2); Sodium Level 137 mmol/L (136-145); Troponin-I HS (w/2H Reflex) 4 pg/mL (3.0-54.0)
[2023-05-20 12:55] VITALS: BP 160/74; PULSE 67; RESP 15
[2023-05-20 13:17] LABS: Reflex Troponin-HS? (from REC) Y
[2023-05-20 13:20] VITALS: BP 162/67; PULSE 71; RESP 15
== END 2023-05-20 13:22 | disposition home or self-care (01) ==
PROVIDERS: Emergency Provider Emergency Medicine; Visit Provider Emergency Medicine
DX: K21.9 Gastro-esophageal reflux disease without esophagitis (principal); R07.9 Chest pain, unspecified; I10 Essential (primary) hypertension; F41.9 Anxiety disorder, unspecified; F32.A Depression, unspecified; Z87.891 Personal history of nicotine dependence; Z79.899 Other long term (current) drug therapy
CPT/HCPCS: 71045; 80048; 80076; 83690; 84484; 85025; 93005; 99284; A4216

== ENCOUNTER 2024-07-28 18:32 | Emergency (ER) | payer OTHER, SELFPAY ==
[2024-07-28 18:33] VITALS: BP 169/87; PULSE 73; RESP 18; TEMP 36.1; O2SAT 99; BMI 30.7
--- NOTE | 2024-07-28 19:40 | CT_ITS ---
STUDY: CT ABDOMEN AND PELVIS WITH CONTRAST REASON FOR EXAM: Female, 63 years old. right sided abd pain RADIATION DOSAGE (If Supplied By Facility): CTDIvol = ( 17.49 ) mGy, DLP = ( 968.82 ) mGycm TECHNIQUE: Transaxial images were obtained from the dome of the diaphragm to the symphysis pubis without oral contrast. IV 100mL Isovue-370 was administered. Sagittal and coronal images were reconstructed. Individualized dose optimization techniques were used for this CT. COMPARISON: None. FINDINGS: Mild atelectasis within the dependent portion of the lower lobes. Heart size is normal. There is minor coronary artery calcification Mild fatty infiltrated liver without mass or bile duct dilatation. Gallbladder has been removed surgically. Normal spleen. Normal pancreas. Normal bilateral adrenal glands. Normal right kidney. Tiny nonobstructing left renal calculus without evidence for renal obstruction or mass.. Normal visualized stomach. Normal small intestine. Minor diverticular changes of the descending and sigmoid colon without evidence for acute diverticulitis The appendix is visualized and appears normal. Normal abdominal aorta. Normal inferior vena cava. Normal retroperitoneum. Normal urinary bladder. Small fat-containing right inguinal hernia. Lumbar spine demonstrates advanced degenerative changes CT/Abdomen/Pelvis W IV Cont ONLY IMPRESSION: Minor diverticular changes of the descending and sigmoid colon without evidence for acute diverticulitis No evidence for small bowel obstruction or other acute abnormality status post cholecystectomy Other findings as above Electronically Signed: Jesse Wang MD at 21:10 EDT ,
--- NOTE | 2024-07-28 19:42 | ED.VIS.GI ---
HPI HPI - GI History of Present Illness Chief Complaint: Abd Pain Informant: patient Narrative Narrative: Patient states has been having right-sided abdominal pain for 4 or 5 months. She states it has been every day. Some days worse than others today was particularly severe, so she presents for evaluation. She became nauseated today with the pain getting bad, but for the most part she has had no nausea or vomiting, abnormal bowel movements, blood or melena, or abnormal urination. The pain radiates into her back and right flank. It hurts more to move. Today she was standing and it continued to worsen despite this. She has seen her doctor for this, and has been treated for musculoskeletal etiologies and given injection for bursitis somewhere. She has had prior cholecystectomy, remote. [facility] Medical History Anxiety GERD (gastroesophageal reflux disease) Non-smoker Anemia Alcohol dependence Cholecystectomy planned Colitis Alcoholism Hyperlipemia Hypertension Depression Home Medications ?Medication ?Instructions ?Recorded ?Last Taken ?Type folic acid 1 mg tablet 1 mg PO DAILY@0800 supplement 02/20/22 02/20/22 History pantoprazole 40 mg tablet,delayed 40 mg PO DAILY 30 days #30 tabs 05/20/23 Unknown Rx release (Protonix) atenolol 100 mg tablet 100 mg PO DAILY 07/28/24 Unknown History cyanocobalamin (vitamin B-12) 1,000 mcg PO DAILY 07/28/24 Unknown History 1,000 mcg tablet fluticasone propionate 50 2 spray intranasal DAILY 07/28/24 Unknown History mcg/actuation nasal spray,suspension tramadol 50 mg tablet 50 mg PO Q6H PRN pain 3 days #12 07/28/24 Unknown Rx tabs Allergy/AdvReac Type Severity Reaction Status Date / Time aspirin AdvReac JITTERY Verified 07/28/24 18:33 Uskszpk-DSZ-TjK Reductase AdvReac FEELS LIKE Verified 07/28/24 18:33 Inhibitor (Ozgyxnk-Txg-Xxq LIPS ARE Reductase Inhibitor) ON FIRE Family History Other COPD (chronic obstructive pulmonary disease) Heart disease Hypertension Surgical History History of cholecystectomy Social History household members: spouse Smoking Status: Former smoker alcohol intake: current alcohol intake frequency: 3 or more drinks per day Alcohol type: hard liquor Previous attempts at quittin details: Was admitted July 2021 with no follow-up pursued and was sober for 2wk substance use type: does not use what type of physical activity do you participate in: none do you feel safe at home: Yes ROS ROS ED Constitutional Constitutional ED: Denies chills or fever(s) Eyes Eyes: Denies change in vision or diplopia ENT ENT ED: Denies rhinorrhea or sore throat Cardiovascular Cardiovascular: Denies chest pain or palpitations Respiratory/Chest Respiratory/Chest: Denies cough or dyspnea Gastrointestinal Gastrointestinal: Reports abdominal pain and nausea; Denies diarrhea or vomiting Genitourinary Genitourinary ED: Denies dysuria or hematuria Musculoskeletal Musculoskeletal: Reports back pain; Denies neck pain Integumentary Denies abscess or rash Neurologic Neurologic: Denies headache(s), paresthesias or weakness Psychiatric Psychiatric: Denies suicidal thoughts EXAM Physical Exam Const Vital Signs: 07/28/24 18:33 07/28/24 20:32 Temperature 97 F L Temperature Source Temporal Pulse Rate 73 69 Respiratory Rate 18 16 Blood Pressure 169/87 H 162/69 H Blood Pressure Mean 114 100 Pulse Ox 99 95 Oxygen Delivery Method Room Air Room Air Positive well nourished and well developed General Appearance ED: well developed and NAD HEENT Reports moist mucous membranes normocephalic and atraumatic Eyes PERRL and EOMs intact bilaterally Neck full ROM and supple Resp normal respiratory effort and clear to auscultation bilaterally Cardio regular rate, regular rhythm and no murmurs GI non-distended GI Narrative: Tender with some mild voluntary guarding throughout the right side of the abdomen, from the subcostal area all the way down to the pelvis. Left side is benign. No palpable masses. Normal inspection. No distention. Auscultation: normoactive bowel sounds Palpation: soft Back/Spine no CVA tenderness Back/Spine Narrative: Superficially tender right low back without rash. Part of this is in the area where the patient has a lidocaine patch, skin underneath it is benign. No palpable mass. No midline tenderness. General Back: other FROM Extremity normal to inspection General Extremety ED: Negative for edema, pulses abnormal or tenderness General Extremity: Negative for edema or pulses abnormal Neuro oriented x3, CN's II-XII intact bilaterally and no sensory deficits noted Sensorium / Orientation: awake and alert Motor Exam: strength 5/5 throughout Skin no rashes or lesions noted and no wounds MDM MDM MDM Narrative Medical decision making narrative: Given the patient's severe pain and tenderness throughout the right side, I think a CT is warranted to evaluate for internal etiologies. Labs were obtained, liver enzymes lipase all normal no leukocytosis, and I reviewed the CT images and the result which I agree with. It is negative for any acute. There are incidental findings including minor coronary calcifications, fat-containing right inguinal hernia, small nonobstructing left renal calculus, and diverticulosis without diverticulitis in the descending and sigmoid colon. Normal appendix seen. No signs of acute inflammatory disorder. Not acutely anemic, porphyria less likely. Patient has had cholecystectomy. At this time she is reassured, this certainly could be musculoskeletal, or functional intestinal although there is no association with food or urinating or bowel movements, but I think she is stable to follow-up with her doctor. I will offer a short course of something for pain. Lab Data Attestation: I reviewed the patient's lab results. Labs: Laboratory Results - last 24 hr 07/28/24 19:50 WBC 6.5 RBC 3.80 L Hgb 12.4 Hct 38.6 MCV 101.6 H MCH 32.6 H MCHC 32.1 RDW Std Deviation 51.7 H RDW Coeff of Johnathan 13.9 Plt Count 292 MPV 9.9 Immature Gran % (Auto) 0.300 Neut % (Auto) 53.7 Lymph % (Auto) 34.1 [place] % (Auto) 8.2 Eos % (Auto) 2.6 Baso % (Auto) 1.1 H Absolute Neuts (auto) 3.5 Absolute Lymphs (auto) 2.20 Nucleated RBC % 0 Sodium 140 Potassium 3.6 Chloride 105 Carbon Dioxide 26.0 Anion Gap 9 BUN 14 Creatinine 1.27 H Estim Creat Clear Calc 42.73 Est GFR (MDRD) Af Amer 54 L Est GFR (MDRD) Non-Af 45 L BUN/Creatinine Ratio 11.0 Glucose 108 H Calcium 9.6 Total Bilirubin 0.50 AST 21 ALT 20 Alkaline Phosphatase 131 H Total Protein 7.1 Albumin 3.6 Globulin 3.5 Albumin/Globulin Ratio 1.0 Lipase 29 Radiography Diagnostic Testing: Clinical Impression(s) from Imaging Studies Abdomen/Pelvis CT 07/28/24 19:40 IMPRESSION: Minor diverticular changes of the descending and sigmoid colon without evidence for acute diverticulitis No evidence for small bowel obstruction or other acute abnormality status post cholecystectomy Other findings as above Electronically Signed: Jesse Wang MD at 21:10 EDT Reading Location ID and State: [facility] / [place] Tel , Service support , Discharge Plan Triage Chief Complaint: Abd Pain ED Provider: Gilles Luna Dx/Rx/DC Orders Clinical Impression: Right-sided abdominal pain of unknown cause, Right-sided back pain Instructions: Abdominal Pain Prescriptions: New tramadol 50 mg tablet 50 mg PO Q6H PRN (Reason: pain) 3 Days Qty: 12 0RF No Action folic acid 1 mg tablet 1 mg PO DAILY@0800 pantoprazole [Protonix] 40 mg tablet,delayed release (DR/EC) 40 mg PO DAILY 30 Days Qty: 30 0RF atenolol 100 mg tablet 100 mg PO DAILY cyanocobalamin (vitamin B-12) 1,000 mcg tablet 1,000 mcg PO DAILY fluticasone propionate 50 mcg/actuation spray,suspension 2 spray INTRANASAL DAILY Primary Care Provider: Yolanda Espinoza Referrals: Yolanda Espinoza [Primary Care Provider] - Keep Frank appointment Print Language: Namibian Disposition Disposition: Home, Self Care
[2024-07-28 19:59] LABS: Absolute Neutrophil Count 3.5 X10^3/uL (2.0-7.7); Basophil# 0.07 X10^3/uL; Basophil% 1.1 % (0-1); Eosinophil# 0.17 X10^3/uL; Eosinophils% 2.6 % (0-5); Hematocrit 38.6 % (37-47); Hemoglobin 12.4 g/dL (12.0-15.0); Lymphocyte % 34.1 % (19-41); Mean Corp Hgb Conc 32.1 g/dL (32-36); Mean Corpuscular Hgb 32.6 pg (27.0-32.0); Mean Corpuscular Volume 101.6 fL (81-99); Mean Platelet Vol. 9.9 fl (6.2-12.0); Monocyte# 0.53 X10^3/uL; Monocyte% 8.2 % (0-10); NRBC Flagged by Analyzer 0 % (0-5); Neutrophil # 3.47 X10^3/uL (2.7-7.7); Neutrophil % 53.7 % (47-70); Platelet Count 292 K/mm3 (150-450); RBC Distribution Width CV 13.9 % (11.6-14.6); RBC Distribution Width SD 51.7 fl (35.1-43.9); White Blood Count 6.5 K/mm3 (4.4-11.0)
[2024-07-28] MEDS: 0.9% Normal Saline (1000mL) 1,000 ML 125 ML IV (20:10)
[2024-07-28] MEDS: Ondansetron 4 MG/2 ML Vial IV (20:11)
[2024-07-28 20:12] LABS: AST(SGOT) 21 U/L (15-37); Alanine Aminotransfer ALT/SGPT 20 U/L (13-56); Albumin, Serum 3.6 g/dL (3.2-5.0); Alkaline Phosphatase 131 U/L (45-117); Anion Gap 9 (5-15); BUN 14 mg/dL (7-18); Calcium,Total 9.6 mg/dL (8.5-10.1); Chloride 105 mmol/L (98-107); Creatinine, Serum 1.27 mg/dL (0.55-1.02); EST Glomerular Filtration Rate 45 mL/min (>60); Est Glom Filt Rate - Afr Amer 54 mL/min (>60); Estimated Creatinine Clearance 42.73 ml/min; Globulin 3.5 g/dL (2.2-4.2); Glucose 108 mg/dL (74-106); Lipase 29 U/L (13-75); Potassium 3.6 mmol/L (3.5-5.1); Protein, Total 7.1 g/dL (6.4-8.2); Sodium Level 140 mmol/L (136-145)
[2024-07-28] MEDS: Morphine 4 MG/ML Syringe IV (20:12)
[2024-07-28 20:32] VITALS: BP 162/69; PULSE 69; RESP 16; O2SAT 95
[2024-07-28 21:17] LABS: Red Blood Cells-Urine 0 SEEN /hpf (0-5)
[2024-07-28 21:21] LABS: Color, Urine Straw (Yellow); Glucose, Dipstick Normal (Normal); Ketone-Dipstick Negative (Negative); Leukocyte Esterase-Dipstick 25 /ul (Negative); Nitrite-Dipstick Negative (Negative); Occult Blood-Urine Negative /ul (Negative); Protein-Dipstick 15 mg/dl (Negative); Specific Gravity, Urine 1.015 (1.002-1.030); Urine Bilirubin Dipstick Negative (Negative); Urine Clarity Clear (Clear); Urine Urobilinogen Normal (Normal)
[2024-07-28 21:33] LABS: White Blood Cells 5-10 SEEN /hpf (0-5)
[2024-07-28 21:34] LABS: Bacteria 2+ /hpf (None Seen); Mucous, Urine 1+ /hpf (<or=2+); Squamous Epithelial Cells - UA 10-25 SEEN /hpf (5-10)
[2024-07-28 22:00] VITALS: BP 142/82; PULSE 67; PULSE 68; RESP 17; TEMP 37; O2SAT 95
== END 2024-07-28 22:10 | disposition home or self-care (01) ==
PROVIDERS: Emergency Provider Emergency Medicine; Visit Provider Emergency Medicine
DX: R10.9 Unspecified abdominal pain (principal); K57.30 Diverticulosis of large intestine without perforation or abscess without bleeding; E78.5 Hyperlipidemia, unspecified; M54.50 Low back pain, unspecified; I10 Essential (primary) hypertension; N20.0 Calculus of kidney; K21.9 Gastro-esophageal reflux disease without esophagitis; F32.A Depression, unspecified; Z79.899 Other long term (current) drug therapy; Z87.891 Personal history of nicotine dependence; Z90.49 Acquired absence of other specified parts of digestive tract
CPT/HCPCS: 74177; 80053; 81001; 83690; 85025; 96361; 96374; 96375; 99283; J7030; J2405

== ENCOUNTER 2024-12-17 17:29 | Emergency (ER) | payer MEDICARE, SELFPAY ==
[2024-12-17 17:30] VITALS: BP 190/92; PULSE 73; RESP 16; TEMP 36.6; O2SAT 98; BMI 30.8
[2024-12-17 18:54] VITALS: BP 196/110; PULSE 71; RESP 13; O2SAT 99
--- NOTE | 2024-12-17 19:25 | EKG12_ITS ---
Test Reason : DYSRHYTHMIA Blood Pressure : */* mmHG Vent. Rate : 67 BPM Atrial Rate : 67 BPM P-R Int : 144 ms QRS Dur : 86 ms QT Int : 404 ms P-R-T Axes : 33 38 22 degrees QTcB Int : 426 ms Normal sinus rhythm Normal ECG Confirmed by KARI GIRON, NEGRITO ([id number]), editor news ALIZE JO ([id number]) on 12/21/2024 6:06:26 AM Referred By: Confirmed By: NEGRITO PIERCE MD
--- NOTE | 2024-12-17 19:43 | EX.ED.DYSGE1 ---
HPI <EMIGDIO Oconnor - Last Filed: 12/17/24 20:37> History of Present Illness Chief Complaint: Hypertension Narrative Narrative: Patient is a 64-year-old female with history of alcohol abuse who still drinks 1 pint of liquor a day, history of hypertension hyperlipidemia GERD who presents to the emergency department for elevated blood pressure. Pay states she checks her blood pressure and she has noticed that the bottom number has been higher than normal. This all started on Saturday when she was at another doctor's office. Patient also states that her home life has been stressful as of late. Patient states that this could contribute to her elevated blood pressure. She states to have some chest pressure that intermittent over the last 2 days. Patient did call her doctor, she does take atenolol 100 mg daily, they told her to take another half tonight. She did do that however she states the blood pressure was not dropping. PFS <EMIGDIO Oconnor - Last Filed: 12/17/24 20:37> COUNT INCLUDES THE [facility] Medical History Anxiety GERD (gastroesophageal reflux disease) Non-smoker Anemia Alcohol dependence Cholecystectomy planned Colitis Alcoholism Hyperlipemia Hypertension Depression Home Medications ?Medication ?Instructions ?Recorded ?Last Taken ?Type folic acid 1 mg tablet 1 mg PO DAILY@0800 supplement 02/20/22 02/20/22 History pantoprazole 40 mg tablet,delayed 40 mg PO DAILY 30 days #30 tabs 05/20/23 Unknown Rx release (Protonix) atenolol 100 mg tablet 100 mg PO DAILY 07/28/24 Unknown History cyanocobalamin (vitamin B-12) 1,000 mcg PO DAILY 07/28/24 Unknown History 1,000 mcg tablet fluticasone propionate 50 2 spray intranasal DAILY 07/28/24 Unknown History mcg/actuation nasal spray,suspension tramadol 50 mg tablet 50 mg PO Q6H PRN pain 3 days #12 07/28/24 Unknown Rx tabs Allergy/AdvReac Type Severity Reaction Status Date / Time aspirin AdvReac JITTERY Verified 12/17/24 17:30 [id number] Reductase AdvReac FEELS LIKE Verified 12/17/24 17:30 Inhibitor (Lnesyhx-Obm-Xfb LIPS ARE Reductase Inhibitor) ON FIRE Family History Other COPD (chronic obstructive pulmonary disease) Heart disease Hypertension Surgical History History of cholecystectomy Social History household members: spouse Smoking Status: Former smoker alcohol intake: current alcohol intake frequency: 3 or more drinks per day Alcohol type: hard liquor Previous attempts at quittin details: Was admitted July 2021 with no follow-up pursued and was sober for 2wk substance use type: does not use what type of physical activity do you participate in: none do you feel safe at home: Yes ROS <EMIGDIO Oconnor - Last Filed: 12/17/24 20:37> ROS ED ROS Narrative Constitutional: Negative for fever, chills, weight loss, weakness Eyes: Negative for vision loss, vision change, double vision ENT: Negative for any sore throat, ear pain, congestion Cardiovascular: Negative for any chest pain, palpitations. Positive chest tightness, hypertension Respiratory: Negative for any cough, sputum production, hemoptysis, dyspnea, dyspnea on exertion, orthopnea Gastrointestinal: Negative for any abdominal pain, nausea, vomiting, diarrhea, constipation, blood in stool, blood in vomit : Negative for any urinary frequency, dysuria, retention, blood in urine Muscle skeletal: Negative for any neck pain, back pain Neurological: Negative for any headache, syncope, dizziness Skin: Negative for any rashes, itching, abrasions, lacerations Psychiatric: Negative for any depression, anxiety, stress, suicidal ideation, homicidal ideation Hematologic: Negative for any excessive bruising, easy bleeding EXAM <EMIGDIO Oconnor - Last Filed: 12/17/24 20:37> Physical Exam Narrative Exam Narrative: Vital signs reviewed. Patient's blood pressure when I evaluated the patient was 178/97. HEET: Head normocephalic atraumatic, TMs clear bilaterally. Posterior pharynx is clear, moist mucous membranes. Nares clear bilaterally. Neck: Supple with no lymphadenopathy or tenderness. No signs of meningismus. Cardiac: Regular rate and rhythm no murmurs gallops or rubs, equal peripheral pulses bilaterally. Respiratory: Lungs clear to auscultation bilaterally. No chest tenderness. Abdomen: Soft, nontender, nondistended. No abdominal bruit or pulsatile masses. No hepatosplenomegaly Extremities: No peripheral edema, no signs of gross trauma or deformity. Active full range of motion of all extremities. Neuro: Cranial nerves II through XII intact, no focal neurological deficits. Skin: Clean dry and intact with no rash, purpura, petechiae, vesicles or pustules. Backs/flank: No CVA tenderness, no midline spinal tenderness, no deformity. Psych: Normal mood and affect. No SI, HI or acute psychosis. Const Vital Signs: 12/17/24 17:30 12/17/24 18:54 12/17/24 18:54 Temperature 97.8 F Temperature Source Temporal Pulse Rate 73 71 Respiratory Rate 16 13 Respiratory Effort Normal Non-Labored Respiratory Pattern Normal Blood Pressure 190/92 H 196/110 H Blood Pressure Mean 124 138 Pulse Ox 98 99 Oxygen Delivery Method Room Air Room Air 12/17/24 20:00 12/17/24 20:42 Temperature 97.8 F Temperature Source Pulse Rate 83 72 Respiratory Rate 18 18 Respiratory Effort Respiratory Pattern Blood Pressure 179/84 H 170/94 H Blood Pressure Mean 115 119 Pulse Ox 95 97 Oxygen Delivery Method Room Air Positive well nourished and well developed General Appearance ED: well developed <Dr. Chucky Turcios DO - Last Filed: 12/18/24 00:11> Physical Exam Const Vital Signs: 12/17/24 17:30 12/17/24 18:54 12/17/24 18:54 Temperature 97.8 F Temperature Source Temporal Pulse Rate 73 71 Respiratory Rate 16 13 Respiratory Effort Normal Non-Labored Respiratory Pattern Normal Blood Pressure 190/92 H 196/110 H Blood Pressure Mean 124 138 Pulse Ox 98 99 Oxygen Delivery Method Room Air Room Air 12/17/24 20:00 12/17/24 20:42 Temperature 97.8 F Temperature Source Pulse Rate 83 72 Respiratory Rate 18 18 Respiratory Effort Respiratory Pattern Blood Pressure 179/84 H 170/94 H Blood Pressure Mean 115 119 Pulse Ox 95 97 Oxygen Delivery Method Room Air MDM <EMIGDIO Oconnor - Last Filed: 12/17/24 20:37> MDM Lab Data Labs: Laboratory Results - last 24 hr 12/17/24 19:40 WBC 9.8 RBC 4.00 L Hgb 13.5 Hct 40.8 MCV 102.0 H MCH 33.8 H MCHC 33.1 RDW Std Deviation 49.6 H RDW Coeff of Johnathan 13.2 Plt Count 349 MPV 10.1 Immature Gran % (Auto) 0.500 Neut % (Auto) 64.9 Lymph % (Auto) 24.6 [place] % (Auto) 7.3 Eos % (Auto) 1.8 Baso % (Auto) 0.9 Absolute Neuts (auto) 6.3 Absolute Lymphs (auto) 2.40 Nucleated RBC % 0 Sodium 140 Potassium 3.8 Chloride 105 Carbon Dioxide 26.0 Anion Gap 8 BUN 16 Creatinine 1.12 H Estim Creat Clear Calc 47.92 Est GFR (MDRD) Af Amer 63 Est GFR (MDRD) Non-Af 52 L BUN/Creatinine Ratio 14.3 Glucose 110 H Calcium 9.4 Total Bilirubin 0.70 Direct Bilirubin 0.20 AST 22 ALT 24 Alkaline Phosphatase 143 H Troponin I High Sens 4 Total Protein 7.5 Albumin 3.6 Globulin 3.9 Lipase 19 Radiography Diagnostic Testing: Clinical Impression(s) from Imaging Studies Chest X-Ray 12/17/24 19:48 IMPRESSION: No acute cardiopulmonary abnormalities. Reading Location: [facility] EKG Normal sinus rhythm: Attestation: I personally reviewed and interpreted this EKG as follows: Interpretation: Sinus Rhythm Comments: Normal sinus rhythm, rate 67 bpm, IN 144 ms, QRS duration 86 ms, no acute ST elevation, no acute infarct noted. Treatment and Re-Evaluation :: Differential diagnosis includes however is not limited to: Hypertensive urgency, hypertensive emergency, stress reaction, JACOB, electrolyte abnormality ACS, NH Patient appears generally well, vital signs are stable, patient is nontoxic-appearing. Patient's blood pressure was elevated however not as high as previous. 178/97. Patient will receive some basic laboratory values including a troponin. Patient received a chest x-ray. All radiologic examinations were read, reviewed by the emergency department attending. From these reads, a plan of care will be put in place. Patient's chest x-ray was negative for any acute process. Patient's laboratory values showed normal CBC, patient's chemistries show a creatinine of 1.12 this is baseline. Glucose 110, alkaline phosphate is 143, there is no other abnormalities. Lipase is negative, troponin was 4 which is negative. At this time, the patient's repeat blood pressure was 169/97. I do believe the patient is stable for discharge. Patient is not having any ACS, NH, there is no evidence of any hypertensive emergency. Patient will follow-up closely with her PCP. All questions were answered, stable for discharge Secondary to the patient's history of alcoholism, continue to drink 1/5 of vodka a day. I did speak with the social media project manager who did come down and evaluate the patient. Patient was given multiple outpatient follow-up clinics. Patient does not want any inpatient clinic at this time. At this time, patient stable for discharge. <Dr. Chucky Turcios, DO - Last Filed: 12/18/24 00:11> [facility] History & Record Review Discussion w/independent historian: Patient Lab Data Attestation: I reviewed the patient's lab results. Labs: Laboratory Results - last 24 hr 12/17/24 19:40 WBC 9.8 RBC 4.00 L Hgb 13.5 Hct 40.8 MCV 102.0 H MCH 33.8 H MCHC 33.1 RDW Std Deviation 49.6 H RDW Coeff of Johnathan 13.2 Plt Count 349 MPV 10.1 Immature Gran % (Auto) 0.500 Neut % (Auto) 64.9 Lymph % (Auto) 24.6 [place] % (Auto) 7.3 Eos % (Auto) 1.8 Baso % (Auto) 0.9 Absolute Neuts (auto) 6.3 Absolute Lymphs (auto) 2.40 Nucleated RBC % 0 Sodium 140 Potassium 3.8 Chloride 105 Carbon Dioxide 26.0 Anion Gap 8 BUN 16 Creatinine 1.12 H Estim Creat Clear Calc 47.92 Est GFR (MDRD) Af Amer 63 Est GFR (MDRD) Non-Af 52 L BUN/Creatinine Ratio 14.3 Glucose 110 H Calcium 9.4 Total Bilirubin 0.70 Direct Bilirubin 0.20 AST 22 ALT 24 Alkaline Phosphatase 143 H Troponin I High Sens 4 Total Protein 7.5 Albumin 3.6 Globulin 3.9 Lipase 19 Radiography Diagnostic Testing: Clinical Impression(s) from Imaging Studies Chest X-Ray 12/17/24 19:48 IMPRESSION: No acute cardiopulmonary abnormalities. Reading Location: [facility] Treatment and Re-Evaluation :: Differential diagnosis includes however is not limited to: Hypertensive urgency, hypertensive emergency, stress reaction, JACOB, electrolyte abnormality ACS, NH Patient appears generally well, vital signs are stable, patient is nontoxic-appearing. Patient's blood pressure was elevated however not as high as previous. 178/97. Patient will receive some basic laboratory values including a troponin. Patient received a chest x-ray. All radiologic examinations were read, reviewed by the emergency department attending. From these reads, a plan of care will be put in place. Patient's chest x-ray was negative for any acute process. Patient's laboratory values showed normal CBC, patient's chemistries show a creatinine of 1.12 this is baseline. Glucose 110, alkaline phosphate is 143, there is no other abnormalities. Lipase is negative, troponin was 4 which is negative. At this time, the patient's repeat blood pressure was 169/97. I do believe the patient is stable for discharge. Patient is not having any ACS, NH, there is no evidence of any hypertensive emergency. Patient will follow-up closely with her PCP. All questions were answered, stable for discharge Secondary to the patient's history of alcoholism, continue to drink 1/5 of vodka a day. I did speak with the social media project manager who did come down and evaluate the patient. Patient was given multiple outpatient follow-up clinics. Patient does not want any inpatient clinic at this time. At this time, patient stable for discharge. I have personally performed a face to face assessment of the patient and have reviewed the KYLER Note. I performed a substantive portion of the visit including all aspects of the following. My haines findings include: History is 64-year-old female presenting for the emergency room for hypertension. Patient states she has been under a lot of stress recently. She started home dialysis with her today was the first day that they had to do it by themselves. She states she has been drinking a significantly more amount of alcohol to cope. She does not wish inpatient detox. She is currently taking atenolol 100 mg was advised to increase that recently. Exam is patient is anxious and appears emotionally stressed. She is in no acute distress. Neurovascularly she appears intact. In talking with her her blood pressure comes down 30 points as we speak. She is not suicidal or homicidal. Medical Decison Making ED workup is rather unremarkable. My independent interpretation the chest x-ray is no acute process. I had social work visit with the patient regarding her drinking and gave her resources. Would have her monitor her blood pressure follow-up with her doctor return if worsening Discharge Plan Triage Chief Complaint: Hypertension ED Midlevel Provider: Emmanuel Gonzalez ED Provider: Chucky Turcios Dx/Rx/DC Orders Clinical Impression: Hypertension, Anxiety, Alcohol abuse Instructions: ED High Blood Pressure Hypertension Prescriptions: No Action folic acid 1 mg tablet 1 mg PO DAILY@0800 pantoprazole [Protonix] 40 mg tablet,delayed release (DR/EC) 40 mg PO DAILY 30 Days Qty: 30 0RF atenolol 100 mg tablet 100 mg PO DAILY cyanocobalamin (vitamin B-12) 1,000 mcg tablet 1,000 mcg PO DAILY fluticasone propionate 50 mcg/actuation spray,suspension 2 spray INTRANASAL DAILY tramadol 50 mg tablet 50 mg PO Q6H PRN (Reason: pain) 3 Days Qty: 12 0RF Primary Care Provider: Yolanda Espinoza Referrals: Yolanda Espinoza [Primary Care Provider] - Activity Restrictions/Additional Instructions: Continue checking your blood pressure daily, follow-up with your PCP. Print Language: Portuguese Disposition Disposition: Home, Self Care Discharge Date/Time: 12/17/24 20:49
--- NOTE | 2024-12-17 19:48 | RAD_ITS ---
PROCEDURE: CHEST 1 VIEW (PORTABLE) REASON FOR EXAM: Hypertension. TECHNIQUE: Frontal view of the chest. COMPARISON: None. FINDINGS: The cardiac and mediastinal contours are normal. The lungs are clear. RAD/Chest 1 View (Portable) IMPRESSION: No acute cardiopulmonary abnormalities. Reading Location: [id number]
[2024-12-17 19:51] LABS: Absolute Neutrophil Count 6.3 X10^3/uL (2.0-7.7); Basophil# 0.09 X10^3/uL; Basophil% 0.9 % (0-1); Eosinophil# 0.18 X10^3/uL; Eosinophils% 1.8 % (0-5); Hematocrit 40.8 % (37-47); Hemoglobin 13.5 g/dL (12.0-15.0); Lymphocyte % 24.6 % (19-41); Mean Corp Hgb Conc 33.1 g/dL (32-36); Mean Corpuscular Hgb 33.8 pg (27.0-32.0); Mean Platelet Vol. 10.1 fl (6.2-12.0); Monocyte# 0.71 X10^3/uL; Monocyte% 7.3 % (0-10); NRBC Flagged by Analyzer 0 % (0-5); Neutrophil # 6.34 X10^3/uL (2.7-7.7); Neutrophil % 64.9 % (47-70); Platelet Count 349 K/mm3 (150-450); RBC Distribution Width CV 13.2 % (11.6-14.6); RBC Distribution Width SD 49.6 fl (35.1-43.9); White Blood Count 9.8 K/mm3 (4.4-11.0)
[2024-12-17 20:00] VITALS: BP 179/84; PULSE 83; RESP 18; O2SAT 95
[2024-12-17 20:05] LABS: AST(SGOT) 22 U/L (15-37); Alanine Aminotransfer ALT/SGPT 24 U/L (13-56); Albumin, Serum 3.6 g/dL (3.2-5.0); Alkaline Phosphatase 143 U/L (45-117); Anion Gap 8 (5-15); BUN 16 mg/dL (7-18); BUN/Creat Ratio 14.3 RATIO (10-20); Calcium,Total 9.4 mg/dL (8.5-10.1); Chloride 105 mmol/L (98-107); Creatinine, Serum 1.12 mg/dL (0.55-1.02); EST Glomerular Filtration Rate 52 mL/min (>60); Est Glom Filt Rate - Afr Amer 63 mL/min (>60); Estimated Creatinine Clearance 47.92 ml/min; Globulin 3.9 g/dL (2.2-4.2); Glucose 110 mg/dL (74-106); Lipase 19 U/L (13-75); Potassium 3.8 mmol/L (3.5-5.1); Protein, Total 7.5 g/dL (6.4-8.2); Sodium Level 140 mmol/L (136-145); Troponin-I HS 4 pg/mL (3.0-54.0)
--- NOTE | 2024-12-17 20:39 | CM.ED ---
Social Work SW met with patient who stated she had been feeling under a lot of stress lately. When asked to explain, patient stated that her and her had been learning how to provide in home dialysis and tonight was the first time they were on their own. Patient also stated she had been drinking daily when her goes to bed and she recognizes that it has gotten out of control. Patient states she has been through detox twice before and the longest she has been sober is a few months. Patient states she believes drinking is contributing to her health concerns and she wants to get well for herself and her . Patient stated she is unable to attend the detox program at the hospital because she cannot leave her at home alone. Patient requesting resources. Patient given 180 information and a list of AA meetings. Trina Franklin, ONSITE CASE MANAGER, [employer]
[2024-12-17 20:42] VITALS: BP 170/94; PULSE 72; RESP 18; TEMP 36.6; O2SAT 97
== END 2024-12-17 20:49 | disposition home or self-care (01) ==
PROVIDERS: Nurse Practitioner; Emergency Provider Emergency Medicine; Visit Provider Emergency Medicine
DX: F41.9 Anxiety disorder, unspecified (principal); F10.20 Alcohol dependence, uncomplicated; R07.89 Other chest pain; I10 Essential (primary) hypertension; E78.5 Hyperlipidemia, unspecified; K21.9 Gastro-esophageal reflux disease without esophagitis; Z79.899 Other long term (current) drug therapy; Z87.891 Personal history of nicotine dependence
CPT/HCPCS: 71045; 80048; 80076; 83690; 84484; 85025; 93005; 99283; A4216